=== PATIENT | female | born 1985 | race Caucasian/White ===

== ENCOUNTER 2021-09-03 14:38 | Emergency (ER) | payer OTHER, SELFPAY ==
--- NOTE | ~2021-09-03 | XR_ITS ---
EXAMINATION: XR CHEST CLINICAL INFORMATION: Shortness of breath. COMPARISON: Chest radiograph dated 03/01/2019. TECHNIQUE: 2 views of the chest were obtained. FINDINGS: The lungs are clear. The cardiomediastinal silhouette is normal in size. There is no pleural effusion or pneumothorax. No acute osseous abnormality. XR/XR chest 2V IMPRESSION: No acute cardiopulmonary findings.
[2021-09-03 15:01] VITALS: BP 122/64; PULSE 90; RESP 16; TEMP 35.8; O2SAT 93; BMI 30.1
--- NOTE | 2021-09-03 15:11 | PC.NURSE ---
PLACED ON 2L NC
--- NOTE | 2021-09-03 17:34 | ED_ITS ---
HPI - SOB/Dyspnea General Chief Complaint: Dyspnea Stated Complaint: Diff Breathing X 4 Days Time Seen by Provider: 09/03/21 16:50 Source: patient Mode of arrival: ambulatory Limitations: no limitations History of Present Illness HPI Narrative: Patient has had Shortness of breath for the past 4 days. Patient has clear mucous. Patient had COVID the first week of August. Denies calf pain or swelling. Patient vapes. MD elicited complaint: shortness of breath and cough Onset (ago): week(s) Timing: constant Severity: mild Associated symptoms: chest pain, cough and sputum production Related Data Previous Rx's Medication Instructions Recorded albuterol sulfate 90 mcg/actuation 2 puff INHALATION Q4-6H PRN #8.5 g 09/03/21 aerosol inhaler prednisone 20 mg tablet 60 mg PO DAILY #12 tab 09/03/21 Allergies Allergy/AdvReac Type Severity Reaction Status Date / Time doxycycline Allergy Unknown Verified 03/01/19 00:00 levofloxacin [Levaquin] Allergy Unknown Verified 03/01/19 00:00 tramadol Allergy Unknown Verified 03/01/19 00:00 Review of Systems Constitutional: Constitutional: Reports no additional constitutional complaints Eyes: Eyes: Reports no additional eye complaints ENT: Denies dizziness Cardiovascular: Cardiovascular: Reports no additional cardiovascular complaints Respiratory: Respiratory: Reports as per HPI Gastrointestinal: Gastrointestinal: Reports no additional gastrointestinal complaints Genitourinary: Genitourinary: Reports no additional female genitourinary complaints Musculoskeletal: Musculoskeletal: Reports no additional musculoskeletal complaints Integumentary/Breasts: Skin/Breast: Denies rash Neurologic: Reports system reviewed and no additional complaints, except as documented, Denies dizziness and Denies Sensory deficit (Neuro) Psychiatric: Psychiatric: Denies anxiety [facility] Social History Social History Advance Directives: No Advance Directives Information Provided: No Physical Exam Vital Signs: Vital Signs: Last Vital Signs Temp 98.3 F 09/03/21 17:45 Pulse 80 09/03/21 17:53 Resp 20 09/03/21 17:53 BP 101/65 09/03/21 17:45 Pulse Ox 93 09/03/21 17:45 BMI result Body Mass Index 30.1 Const: General: healthy appearing Nutritional Appearance: average body habitus Orientation/consciousness: oriented to person and patient oriented x3 Limitations: no limitations HEENT: Head: Yes normal to inspection Ears: external ears normal General nose exam: Normal external nose present Mouth: Normal oral and palatal mucosa present and oropharynx normal Throat: Yes posterior oropharynx normal Eyes: General: appearance normal, both eyes and all related structures Neck: Other: supple Neck: Yes normal visual inspection Chest: Chest palpation & inspection: normal inspection of the chest Resp: Other: patient with severe diffuse wheezing Cardio: Jugular venous distension: no JVD Rate: regular rate Rhythm: regular rhythm Heart sounds: S1 normal heart sound present and S2 normal heart sound present GI: Inspection: Yes normal to inspection Palpation (GI): Soft to palpation, nontender and No hepatosplenomegaly present Auscultation: normal bowel sounds : General: Yes no CVA tenderness Back/Spine/Pelvis: Back: no CVA tenderness Skin: General skin exam: no rashes or lesions noted Neuro: General: oriented to person and patient oriented x3 Cranial nerves: Yes CN's II-XII intact bilaterally Motor exam (neuro): 5/5 motor strength present throughout Sensory Exam: No Sensory deficit (Neuro) Extrem: General: Yes normal to inspection Psych: Appearance: grossly normal Course Reevaluation(s) Reevaluation #1: Wheezing much better will dc on prednisone and albuterol Time: 18:44 MDM - SOB/Dyspnea Imaging Data Chest x-ray: Radiologist's impression: Normal chest xray Discharge Plan Discharge Clinical Impression: Acute bronchospasm Patient Disposition: Home, Self-Care Instructions: Bronchospasm (ED) Prescriptions: New prednisone 20 mg tablet 60 mg PO DAILY Qty: 12 0RF albuterol sulfate 90 mcg/actuation HFA aerosol inhaler 2 puff inhalation Q4-6H PRN (Reason: shortness of breath or wheezing) Qty: 8.5 0RF Referrals: Physician,Unknown J [Primary Care Provider] - 1 week Stand Alone Forms: Work/School Release
[2021-09-03 17:45] VITALS: BP 101/65; PULSE 80; RESP 16; TEMP 36.8; O2SAT 93
[2021-09-03] MEDS: Albuterol/Iprat 2.5/0.5MG 3 ML AMPUL.NEB INHALE (17:52)
[2021-09-03 17:53] VITALS: PULSE 80; RESP 20; O2SAT 93
[2021-09-03] MEDS: predniSONE 20 MG TABLET 60 MG PO (17:55)
== END 2021-09-03 19:26 | disposition home or self-care (01) ==
PROVIDERS: Emergency Provider Emergency Medicine
DX: J98.01 Acute bronchospasm (principal); R06.02 Shortness of breath; R05.9 Cough, unspecified; R07.89 Other chest pain; Z79.899 Other long term (current) drug therapy
CPT/HCPCS: 71046; 94640; 99282; 99284

== ENCOUNTER 2022-04-08 10:59 | Inpatient (IN) | payer OTHER, SELFPAY ==
[2022-04-08] VITALS (11 sets, daily range): BP systolic 118–148; BP diastolic 64–91; PULSE 63–104; RESP 15–22; TEMP 36.3–37.1; O2SAT 91–97; BMI 29.2
--- NOTE | ~2022-04-08 | XR_ITS ---
EXAMINATION: XR chest 1V CLINICAL INFORMATION: Reason for Exam SOB COMPARISON: None TECHNIQUE: XR chest 1V Tubes and lines: None Lungs and pleura: Both lungs are clear. Heart and mediastinum: The mediastinum is within normal limits.. Bones/soft tissue: Skeletal structures included are normal for patient's age. XR/XR chest 1V IMPRESSION: Normal chest x-ray.
--- NOTE | 2022-04-08 11:14 | PC.NURSE ---
patient a/0x4 . pearrla . patient heart rate regular ta 63 beats per minute . breathing labored . lungs tight , wheezes noted in upper airway . crackles in lower lobes . R.T contacted at bedside . Dr. Chopra at bedside . skin moist , pink and warm . 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 patient currently on 5 liters via nasal canulla to maintain an oxygen level of 94 % . patient report history of both heroin use and vaping today .abdomen soft , postive bowel sounds in all four quadrants . labs obtained and sent . Neb treatment done by RLizzieT. patient aware of plan of care .
[2022-04-08] MEDS: Albuterol Sulfate 7.5 MG, Albuterol Sulfate (0.083%) 2.5 MG 10 MG INHALE ×3 (11:17→13:42)
[2022-04-08 11:22] LABS: MANUAL DIFF FLAG NO
--- NOTE | 2022-04-08 11:30 | ED.SOB ---
HPI - SOB/Dyspnea General Chief Complaint: Dyspnea Stated Complaint: SOB 81% RA, 97% ON TREATMENT PER EMS Time Seen by Provider: 04/08/22 11:02 Source: patient Mode of arrival: EMS History of Present Illness HPI Narrative: 37-year-old female who arrives via EMS for significant shortness of breath and as per EMS she was 81% on room air and is now 97% on supplemental oxygen. Patient states that she has been vaping and also endorses snorting heroin prior to arrival. She otherwise denies any chest pain, fevers, chills, GI or symptoms. EMS gave 120 mg of Solu-Medrol Related Data Previous Rx's Medication Instructions Recorded albuterol sulfate 90 mcg/actuation 2 puff inhalation Q4-6H PRN 09/03/21 aerosol inhaler shortness of breath or wheezing #8.5 grams prednisone 20 mg tablet 60 mg PO DAILY #12 tabs 09/03/21 Allergies Allergy/AdvReac Type Severity Reaction Status Date / Time doxycycline Allergy Unknown Verified 03/01/19 00:00 levofloxacin [Levaquin] Allergy Unknown Verified 03/01/19 00:00 tramadol Allergy Unknown Verified 03/01/19 00:00 Review of Systems Review of Systems: Pertinent positives and negatives as stated in HPI. PMFSH Past Medical History Source: nursing notes reviewed Social History Social History Alcohol intake: never Smoked in Last 30 Days: No Substance Use Type: Heroin and Marijuana Advance Directives: No Advance Directives Information Provided: No Patient : No Physical Exam Vital Signs: Vital Signs: Last Vital Signs Temp 98.5 F 04/08/22 16:03 Pulse 83 04/08/22 16:03 Resp 21 H 04/08/22 16:03 BP 139/70 04/08/22 16:03 Pulse Ox 91 L 04/08/22 16:03 O2 Del Method 04/08/22 16:03 O2 Flow Rate 2 04/08/22 16:03 Oxygen Flow Rate 5 04/08/22 11:07 BMI result Body Mass Index 29.2 VITAL SIGNS: Reviewed. GENERAL: Well developed, well nourished, in no acute distress. HEAD: Normocephalic/atraumatic EYES: PERRLA, EOMI EARS: Ext canals without abnormality NOSE: Nares patent bilateral OROPHARYNX: no oral lesions noted, posterior pharynx clear NECK: Supple, no adenopathy LUNGS: Decreased breath sounds bilaterally with coarse rhonchi, increased work of breathing and tachypnea. SpO2<93> on 4 L of nasal cannula CARDIOVASCULAR: Regular rate and rhythm without noted murmurs ABDOMEN: Soft, non-tender, non-distended with bowel sounds. MUSCULOSKELETAL: No tenderness, deformities, or effusions noted on gross inspection. EXTREMITIES: No cyanosis, clubbing or edema. SKIN: Inspection of the skin reveals no rashes NEUROLOGIC: Alert and oriented x 3. Strength and sensation to light touch were grossly intact x 4. Medications Administered Discontinued Medications Generic Name Dose Route Start Last Admin Trade Name Freq PRN Reason Stop Dose Admin Albuterol Sulfate 7.5 mg/ 10 mg 04/08/22 11:02 04/08/22 11:17 Albuterol Sulfate 2.5 mg INHALE 04/08/22 11:03 10 mg ONCE ONE Administration Albuterol Sulfate 7.5 mg/ 10 mg 04/08/22 11:31 04/08/22 11:50 Albuterol Sulfate 2.5 mg INHALE 04/08/22 11:32 10 mg ONCE ONE Administration Albuterol Sulfate 7.5 mg/ 10 mg 04/08/22 13:30 04/08/22 13:42 Albuterol Sulfate 2.5 mg INHALE 04/08/22 13:31 10 mg ONCE ONE Administration Medical Decision Making Medical Decision Making MDM Narrative: 37-year-old female with combination vaping, inhalation of heroin and on review of prior visit apparently has had bronchospasm before. 1545: There is a noted leukocytosis without left shift and noted eosinophilia, chemistries are without acute findings, urinalysis without evidence of infection and urine negative, urine toxicology is positive, viral testing is negative. Patient has received 3 nebulized treatments and received steroids via EMS, and on attempts to remove supplemental oxygen patient was noted to drop to 89-90% and was placed back on 2 L. 1657: Will obtain D-dimer, also consult id the inpatient hospitalist for admission. Suspect pneumonitis and may be explainable by vaping and/or inhalation of illicit drugs. Although the chest x-ray shows ?normal chest x-ray?. 1714: D-dimer is <150 Differential Diagnosis Differential Diagnoses: The differential diagnosis associated with the presentation includes I will rule out infection, asthma, viral illness Consult Healthcare Provider Management of the patient was discussed with: Hospitalist 1657: I consulted with the inpatient hospitalist team for admission, and they do accept admission. Lab Data MDM Lab Attestation statement: I reviewed the patient's lab results. Please see discussion above Result Diagrams: 04/08/22 11:17 04/08/22 11:17 Labs: Lab Results 04/08/22 04/08/22 04/08/22 Range/Units 11:17 11:17 11:17 WBC 13.2 H (4.8-10.8) X10*3/uL RBC 4.48 (4.20-5.50) X10*6/uL Hgb 14.2 (12.0-16.0) g/dl Hct 42.8 (37.0-47.0) % MCV 95.5 (80.0-98.0) fL MCH 31.7 (27.0-33.0) pg MCHC 33.2 (31.0-35.0) g/dl RDW 12.8 (11.0-16.0) % Plt Count 308 (160-400) X10*3/uL MPV 9.0 L (9.4-12.3) fL Immature Gran % (Auto) 0.3 (0.0-0.4) % Neut % (Auto) 64.7 (45-73) % Lymph % (Auto) 16.7 L (20-40) % [place] % (Auto) 5.9 (2-11) % Eos % (Auto) 11.6 H (0-4) % Baso % (Auto) 0.8 (0-2) % Lymph # (Auto) 2.2 (1.2-4.9) X10*3/uL [place] # (Auto) 0.8 (0.1-1.2) X10*3/uL Eos # (Auto) 1.5 H (0.0-0.4) X10*3/uL Baso # (Auto) 0.1 (0.0-0.2) X10*3/uL Abs Immat Gran (auto) 0.04 H (0.00-0.03) X10*3/uL Absolute Neuts (auto) 8.5 H (2.0-8.3) x10*3/uL Absolute Nucleated RBC 0.000 (0.0-0.012) X10*3/uL Nucleated RBC % (auto) 0.0 (0.0-0.2) /100WBC D-Dimer High Sensitivty NG/ML Sodium 141 (135-145) mmol/L Potassium 4.3 (3.3-5.1) mmol/L Chloride 108 (96-108) mmol/L Carbon Dioxide 25 (22-29) mmol/L Anion Gap 12 (12-20) BUN 11 (9-16) mg/dL Creatinine 0.80 (0.5-1.4) mg/dL Estim Creat Clear Calc 96.7 Estimated GFR > 60 Random Glucose 119 H (60-115) mg/dL Calcium 9.2 (8.4-10.2) mg/dL Total Bilirubin 0.6 (0.0-1.0) mg/dL AST 22 (5-31) U/L ALT 20 (0-31) U/L Alkaline Phosphatase 63 (39-117) U/L Total Protein 6.8 (6.5-8.0) g/dL Albumin 4.2 (3.5-5.0) g/dL Urine Color Urine Appearance Urine pH (5.0-9.0) Ur Specific Stanton (1.005-1.025) Urine Protein (Neg-Trace) mg/dL Urine Glucose (UA) (Negative) mg/dL Urine Ketones (Negative) mg/dL Urine Blood (Negative) Urine Nitrite (Negative) Ur Leukocyte Esterase (Negative) Urine Test (NEGATIVE) Urine Opiates Screen (Not Detect) Urine Fentanyl Screen (Not Detect) Ur Barbiturates Screen (Not Detect) Ur Phencyclidine Scrn (Not Detect) Ur Amphetamines Screen (Not Detect) U Benzodiazepines Scrn (Not Detect) Urine Cocaine Screen (Not Detect) U Marijuana (THC) Screen (Not Detect) COVID-19 (YASMEEN) (Negative) COVID-19 Clin Com Influenza Type A (MARITO) Negative (Negative) Influenza Type B (MARITO) Negative (Negative) Influenza A & B Note See Note 04/08/22 04/08/22 04/08/22 Range/Units 11:17 14:48 14:48 WBC (4.8-10.8) X10*3/uL RBC (4.20-5.50) X10*6/uL Hgb (12.0-16.0) g/dl Hct (37.0-47.0) % MCV (80.0-98.0) fL MCH (27.0-33.0) pg MCHC (31.0-35.0) g/dl RDW (11.0-16.0) % Plt Count (160-400) X10*3/uL MPV (9.4-12.3) fL Immature Gran % (Auto) (0.0-0.4) % Neut % (Auto) (45-73) % Lymph % (Auto) (20-40) % [place] % (Auto) (2-11) % Eos % (Auto) (0-4) % Baso % (Auto) (0-2) % Lymph # (Auto) (1.2-4.9) X10*3/uL [place] # (Auto) (0.1-1.2) X10*3/uL Eos # (Auto) (0.0-0.4) X10*3/uL Baso # (Auto) (0.0-0.2) X10*3/uL Abs Immat Gran (auto) (0.00-0.03) X10*3/uL Absolute Neuts (auto) (2.0-8.3) x10*3/uL Absolute Nucleated RBC (0.0-0.012) X10*3/uL Nucleated RBC % (auto) (0.0-0.2) /100WBC D-Dimer High Sensitivty NG/ML Sodium (135-145) mmol/L Potassium (3.3-5.1) mmol/L Chloride (96-108) mmol/L Carbon Dioxide (22-29) mmol/L Anion Gap (12-20) BUN (9-16) mg/dL Creatinine (0.5-1.4) mg/dL Estim Creat Clear Calc Estimated GFR Random Glucose (60-115) mg/dL Calcium (8.4-10.2) mg/dL Total Bilirubin (0.0-1.0) mg/dL AST (5-31) U/L ALT (0-31) U/L Alkaline Phosphatase (39-117) U/L Total Protein (6.5-8.0) g/dL Albumin (3.5-5.0) g/dL Urine Color Yellow Urine Appearance Clear Urine pH 5.5 (5.0-9.0) Ur Specific Stanton 1.025 (1.005-1.025) Urine Protein Negative (Neg-Trace) mg/dL Urine Glucose (UA) Negative (Negative) mg/dL Urine Ketones Trace (Negative) mg/dL Urine Blood Negative (Negative) Urine Nitrite Negative (Negative) Ur Leukocyte Esterase Negative (Negative) Urine Test NEGATIVE (NEGATIVE) Urine Opiates Screen (Not Detect) Urine Fentanyl Screen (Not Detect) Ur Barbiturates Screen (Not Detect) Ur Phencyclidine Scrn (Not Detect) Ur Amphetamines Screen (Not Detect) U Benzodiazepines Scrn (Not Detect) Urine Cocaine Screen (Not Detect) U Marijuana (THC) Screen (Not Detect) COVID-19 (YASMEEN) Negative (Negative) COVID-19 Clin Com See Note Influenza Type A (MARITO) (Negative) Influenza Type B (MARITO) (Negative) Influenza A & B Note 04/08/22 04/08/22 Range/Units 14:48 16:11 WBC (4.8-10.8) X10*3/uL RBC (4.20-5.50) X10*6/uL Hgb (12.0-16.0) g/dl Hct (37.0-47.0) % MCV (80.0-98.0) fL MCH (27.0-33.0) pg MCHC (31.0-35.0) g/dl RDW (11.0-16.0) % Plt Count (160-400) X10*3/uL MPV (9.4-12.3) fL Immature Gran % (Auto) (0.0-0.4) % Neut % (Auto) (45-73) % Lymph % (Auto) (20-40) % [place] % (Auto) (2-11) % Eos % (Auto) (0-4) % Baso % (Auto) (0-2) % Lymph # (Auto) (1.2-4.9) X10*3/uL [place] # (Auto) (0.1-1.2) X10*3/uL Eos # (Auto) (0.0-0.4) X10*3/uL Baso # (Auto) (0.0-0.2) X10*3/uL Abs Immat Gran (auto) (0.00-0.03) X10*3/uL Absolute Neuts (auto) (2.0-8.3) x10*3/uL Absolute Nucleated RBC (0.0-0.012) X10*3/uL Nucleated RBC % (auto) (0.0-0.2) /100WBC D-Dimer High Sensitivty < 150 NG/ML Sodium (135-145) mmol/L Potassium (3.3-5.1) mmol/L Chloride (96-108) mmol/L Carbon Dioxide (22-29) mmol/L Anion Gap (12-20) BUN (9-16) mg/dL Creatinine (0.5-1.4) mg/dL Estim Creat Clear Calc Estimated GFR Random Glucose (60-115) mg/dL Calcium (8.4-10.2) mg/dL Total Bilirubin (0.0-1.0) mg/dL AST (5-31) U/L ALT (0-31) U/L Alkaline Phosphatase (39-117) U/L Total Protein (6.5-8.0) g/dL Albumin (3.5-5.0) g/dL Urine Color Urine Appearance Urine pH (5.0-9.0) Ur Specific Stanton (1.005-1.025) Urine Protein (Neg-Trace) mg/dL Urine Glucose (UA) (Negative) mg/dL Urine Ketones (Negative) mg/dL Urine Blood (Negative) Urine Nitrite (Negative) Ur Leukocyte Esterase (Negative) Urine Test (NEGATIVE) Urine Opiates Screen POSITIVE H (Not Detect) Urine Fentanyl Screen POSITIVE H (Not Detect) Ur Barbiturates Screen Not Detected (Not Detect) Ur Phencyclidine Scrn Not Detected (Not Detect) Ur Amphetamines Screen Not Detected (Not Detect) U Benzodiazepines Scrn POSITIVE H (Not Detect) Urine Cocaine Screen POSITIVE H (Not Detect) U Marijuana (THC) Screen Not Detected (Not Detect) COVID-19 (YASMEEN) (Negative) COVID-19 Clin Com Influenza Type A (MARITO) (Negative) Influenza Type B (MARITO) (Negative) Influenza A & B Note Discharge Plan Discharge Clinical Impression: Pneumonitis, Hypoxia, Polysubstance use disorder Patient Disposition: Admitted As Inpatient
[2022-04-08 11:33] LABS: Basophils Absolute Auto 0.1 X10*3/uL (0.0-0.2); Basophils Percent Auto 0.8 % (0-2); Eosinophils Absolute Auto 1.5 X10*3/uL (0.0-0.4); Eosinophils Percent Auto 11.6 % (0-4); Hematocrit 42.8 % (37.0-47.0); Hemoglobin 14.2 g/dl (12.0-16.0); Imm Gran Abs Auto 0.04 X10*3/uL (0.00-0.03); Imm Gran Pct Auto 0.3 % (0.0-0.4); Lymphocytes Absolute Auto 2.2 X10*3/uL (1.2-4.9); Lymphocytes Percent Auto 16.7 % (20-40); Mean Corpuscular HGB Conc 33.2 g/dl (31.0-35.0); Mean Corpuscular Hemoglobin 31.7 pg (27.0-33.0); Mean Corpuscular Volume 95.5 fL (80.0-98.0); Monocytes Absolute Auto 0.8 X10*3/uL (0.1-1.2); Monocytes Percent Auto 5.9 % (2-11); Neutrophils Absolute Auto 8.5 x10*3/uL (2.0-8.3); Neutrophils Percent Auto 64.7 % (45-73); Platelet Count 308 X10*3/uL (160-400); Red Blood Count 4.48 X10*6/uL (4.20-5.50); Red Cell Distribution Width 12.8 % (11.0-16.0); White Blood Count 13.2 X10*3/uL (4.8-10.8)
[2022-04-08 11:46] LABS: COVID-19 Test Negative (Negative); IDNOW Serial# 16C4AD1C; IDNOW Serial# 6674DD1D; Influenza A Negative (Negative); Influenza B2 Negative (Negative)
[2022-04-08 11:48] LABS: Alanine Aminotransferase 20 U/L (0-31); Albumin Level 4.2 g/dL (3.5-5.0); Alkaline Phosphatase 63 U/L (39-117); Anion Gap 12 (12-20); Aspartate Amino Transferase 22 U/L (5-31); Bilirubin Total 0.6 mg/dL (0.0-1.0); Blood Urea Nitrogen 11 mg/dL (9-16); Calcium 9.2 mg/dL (8.4-10.2); Carbon Dioxide 25 mmol/L (22-29); Chloride 108 mmol/L (96-108); Creatinine Clr Calc Pharmacy 96.7; Estimated Glomerular Filt Rate > 60; Glucose Random 119 mg/dL (60-115); Potassium 4.3 mmol/L (3.3-5.1); Sodium 141 mmol/L (135-145); Total Protein 6.8 g/dL (6.5-8.0)
--- NOTE | 2022-04-08 12:00 | PC.NURSE ---
Patient had improvement in lungs after neb treatment , decreased tightness and wheezes noted . R.T titrated nasal canulla down to 4 liters and administered another treatment as ordered by provider . patient is aware of plan of care .
--- NOTE | 2022-04-08 13:24 | PC.NURSE ---
Xray at bedside . patient aware of plan of care .
[2022-04-08 14:59] LABS: Appearance Urine Clear; Color Urine Yellow; Glucose Urine UA Negative (Negative); Leukocyte Esterase Urine Negative (Negative); Nitrite Urine Negative (Negative); PH 5.5 (5.0-9.0); Specific Gravity - Urine 1.025 (1.005-1.025); Urine Blood Negative (Negative); Urine Ketones Trace mg/dL (Negative); Urine Protein Negative (Neg-Trace)
[2022-04-08 15:00] LABS: UPreg QC Valid YES; Urine Pregnancy NEGATIVE (NEGATIVE)
[2022-04-08 15:05] LABS: Amphetamine Screen Urine Not Detected (Not Detect); Barbiturates, Urine Not Detected (Not Detect); Benzodiazepines Screen Urine POSITIVE (Not Detect); Cannabinoid Screen Urine Not Detected (Not Detect); Cocaine Screen Urine POSITIVE (Not Detect); Fentanyl, urine POSITIVE (Not Detect); Opiate Screen Urine POSITIVE (Not Detect); Phencyclidine Screen Urine Not Detected (Not Detect)
--- NOTE | 2022-04-08 16:06 | P.HPHOSP_ITS ---
History of Present Illness Date of Service: 04/08/22 <CHRISTEL Reynolds - Last Filed: 04/08/22 17:20> Chief Complaint: SOB <CHRISTEL Reynolds - Last Filed: 04/08/22 17:20> Pt is a 37-year-old female with a PMH significant for polysubstance abuse who presents to the ED with shortness of breath and cough. Pt states the symptoms have been ongoing for about 1 week but have gradually been worsening and she has been ?unable to breathe? for the past 24 hours. Patient denies history of asthma but says she has felt similar to this when she was diagnosed with bronchitis in August of this year. Patient has a history of daily vaping and also notes she snorted heroin earlier this morning and now feels like she is going through withdrawal. Has been sweating and feels ?awful? but denies fever, chills, nausea, vomiting. No abdominal pain. EMS noted the patient was satting at 81% on room air. Patient placed on 2L nasal cannula which improved her O2 sat 97% In the ED labs were significant for leukocytosis of 13.2 though with no left shift, tox screen positive for opiates, fentanyl, benzos, cocaine. D-dimer pending. CXR was clear. Pt was treated with steroids by EMS and received 3 nebulizer treatments. Pt will be admitted to observation for treatment for pneumonitis. <CHRISTEL Reynolds - Last Filed: 04/08/22 17:20> Review of Systems Review of Systems: SOB, cough x1 week, worse past 24 hours No palpitations No abdominal pain <CHRISTEL Reynolds - Last Filed: 04/08/22 17:20> [facility] Social History: Social History Alcohol intake: never Smoked in Last 30 Days: No Substance Use Type: Heroin and Marijuana Advance Directives: No Advance Directives Information Provided: No Patient : No <CHRISTEL Reynolds - Last Filed: 04/08/22 17:20> Meds Allergies/Adverse reactions: Allergies Allergy/AdvReac Type Severity Reaction Status Date / Time doxycycline Allergy Unknown Verified 03/01/19 00:00 levofloxacin [Levaquin] Allergy Unknown Verified 03/01/19 00:00 tramadol Allergy Unknown Verified 03/01/19 00:00 <CHRISTEL Reynolds - Last Filed: 04/08/22 17:20> Physical Exam Vital Signs and Narrative: Vital Signs: Last Vital Signs Temp 98.1 F 04/08/22 11:07 Pulse 66 04/08/22 13:43 Resp 16 04/08/22 13:43 BP 118/64 04/08/22 12:29 Pulse Ox 92 04/08/22 12:29 O2 Del Method 04/08/22 12:29 O2 Flow Rate 4 04/08/22 12:29 Oxygen Flow Rate 5 04/08/22 11:07 BMI result Body Mass Index 29.2 <CHRISTEL Reynolds - Last Filed: 04/08/22 17:20> Constitutional: Agitated, restless, diaphoretic. Mental Status: Oriented to person, place and time. Eyes: Pupils are equal, round, and reactive to light. Ear, Nose, and Throat: Oropharynx clear, mucous membranes moist. Ears and nose without deformities. Trachea midline. Respiratory: Diffuse rhonchi bilaterally. Cardiovascular: S1, S2. Tachycardic. No murmurs, rubs, or gallops. Gastrointestinal: Abdomen soft, non-tender, non-distended. Normal bowel sounds. Neurologic: Cranial nerves II-XI are grossly intact. No focal neurological deficits. Moves all extremities spontaneously. Skin: No rashes or lesions noted. Musculoskeletal: No cyanosis or clubbing. Extremities: No edema. Psychiatric: Normal mood and affect. <CHRISTEL Reynolds - Last Filed: 04/08/22 17:20> Results Labs CBC and Chem 7: : 04/08/22 11:17 04/08/22 11:17 <CHRISTEL Reynolds - Last Filed: 04/08/22 17:20> Labs: Laboratory Results - last 24 hr 04/08/22 04/08/22 04/08/22 11:17 11:17 11:17 MCV 95.5 MCH 31.7 MCHC 33.2 RDW 12.8 Plt Count 308 MPV 9.0 L Immature Gran % (Auto) 0.3 Neut % (Auto) 64.7 Lymph % (Auto) 16.[address] [facility] % (Auto) 5.9 Eos % (Auto) 11.6 H Baso % (Auto) 0.8 Lymph # (Auto) 2.2 [facility] [place] # (Auto) 0.8 Eos # (Auto) 1.5 H Baso # (Auto) 0.1 Abs Immat Gran (auto) 0.04 H Absolute Neuts (auto) 8.5 H Absolute Nucleated RBC 0.000 Nucleated RBC % (auto) 0.0 Anion Gap 12 Estim Creat Clear Calc 96.7 Estimated GFR > 60 Random Glucose 119 H Calcium 9.2 Total Bilirubin 0.6 AST 22 ALT 20 Alkaline Phosphatase 63 Total Protein 6.8 Albumin 4.2 Urine Color Urine Appearance Urine pH Ur Specific [place] Urine Protein Urine Glucose (UA) Urine Ketones Urine Blood Urine Nitrite Ur Leukocyte Esterase Urine Test Urine Opiates Screen Urine Fentanyl Screen Ur Barbiturates Screen Ur Phencyclidine Scrn Ur Amphetamines Screen U Benzodiazepines Scrn Urine Cocaine Screen U Marijuana (THC) Screen COVID-19 (YASMEEN) COVID-19 Clin Com Influenza Type A (MARITO) Negative Influenza Type B (MARITO) Negative Influenza A & B Note See Note 04/08/22 04/08/22 04/08/22 11:17 14:48 14:48 MCV MCH MCHC RDW Plt Count MPV Immature Gran % (Auto) Neut % (Auto) Lymph % (Auto) [facility] % (Auto) Eos % (Auto) Baso % (Auto) Lymph # (Auto) [facility] # (Auto) Eos # (Auto) Baso # (Auto) Abs Immat Gran (auto) Absolute Neuts (auto) Absolute Nucleated RBC Nucleated RBC % (auto) Anion Gap Estim Creat Clear Calc Estimated GFR Random Glucose Calcium Total Bilirubin AST ALT Alkaline Phosphatase Total Protein Albumin Urine Color Yellow Urine Appearance Clear Urine pH 5.5 Ur Specific [place] 1.025 Urine Protein Negative Urine Glucose (UA) Negative Urine Ketones Trace Urine Blood Negative Urine Nitrite Negative Ur Leukocyte Esterase Negative Urine Test NEGATIVE Urine Opiates Screen Urine Fentanyl Screen Ur Barbiturates Screen Ur Phencyclidine Scrn Ur Amphetamines Screen U Benzodiazepines Scrn Urine Cocaine Screen U Marijuana (THC) Screen COVID-19 (YASMEEN) Negative COVID-19 Clin Com See Note Influenza Type A (MARITO) Influenza Type B (MARITO) Influenza A & B Note 04/08/22 14:48 MCV MCH MCHC RDW Plt Count MPV Immature Gran % (Auto) Neut % (Auto) Lymph % (Auto) [facility] [place] % (Auto) Eos % (Auto) Baso % (Auto) Lymph # (Auto) [facility] # (Auto) Eos # (Auto) Baso # (Auto) Abs Immat Gran (auto) Absolute Neuts (auto) Absolute Nucleated RBC Nucleated RBC % (auto) Anion Gap Estim Creat Clear Calc Estimated GFR Random Glucose Calcium Total Bilirubin AST ALT Alkaline Phosphatase Total Protein Albumin Urine Color Urine Appearance Urine pH Ur Specific [place] Urine Protein Urine Glucose (UA) Urine Ketones Urine Blood Urine Nitrite Ur Leukocyte Esterase Urine Test Urine Opiates Screen POSITIVE H Urine Fentanyl Screen POSITIVE H Ur Barbiturates Screen Not Detected Ur Phencyclidine Scrn Not Detected Ur Amphetamines Screen Not Detected U Benzodiazepines Scrn POSITIVE H Urine Cocaine Screen POSITIVE H U Marijuana (THC) Screen Not Detected COVID-19 (YASMEEN) COVID-19 Clin Com Influenza Type A (MARITO) Influenza Type B (MARITO) Influenza A & B Note <CHRISTEL Reynolds - Last Filed: 04/08/22 17:20> Imaging Radiologist's Impressions: Impressions Chest X-Ray 04/08/22 13:18 IMPRESSION: Normal chest x-ray. <CHRISTEL Reynolds - Last Filed: 04/08/22 17:20> Assessment and Plan (1) Polysubstance use disorder: Status: Acute <CHRISTEL Reynolds - Last Filed: 04/08/22 17:20> (2) Hypoxia: Status: Acute <CHRISTEL Reynolds - Last Filed: 04/08/22 17:20> (3) Pneumonitis: Status: Acute <CHRISTEL Reynolds - Last Filed: 04/08/22 17:20> Pt is a 37-year-old female with a PMH significant for polysubstance abuse who presents to the ED with shortness of breath and cough. Pt states the symptoms have been ongoing for about 1 week but have gradually been worsening and she has been ?unable to breathe? for the past 24 hours. Patient has a history of polysubstance abuse and last snorted heroin earlier today. SOB secondary to pneumonitis Chest x-ray clear, likely not bacterial infection DuoNeb 3ml q4h while awake Solu-Medrol 125 mg once, then 40 mg b.i.d. nasal canula titrated to O2>92, wean as tolerated Monitor respiratory status Heroin use disorder Morphine 4 mg Q4 for withdrawal symptoms as bridge to methadone Check hep B, hep C, HIV Addiction medicine consult Nicotine use disorder Nicotine gum for nicotine replacement therapy Full Code Attending:? DVT Prophylaxis: pneumatic boots Patient to be admitted for observation. If symptoms improve and her O2 >92 on RA, can likely be discharged tomorrow. <CHRISTEL Reynolds - Last Filed: 04/08/22 17:20> Pt is a 37-year-old female with a PMH significant for polysubstance abuse who presents to the ED with shortness of breath and cough. Pt states the symptoms have been ongoing for about 1 week but have gradually been worsening and she has been ?unable to breathe? for the past 24 hours. Patient has a history of polysubstance abuse and last snorted heroin earlier today. SOB secondary to pneumonitis Chest x-ray clear, likely not bacterial infection DuoNeb 3ml q4h while awake Solu-Medrol 125 mg once, then 40 mg b.i.d. nasal canula titrated to O2>92, wean as tolerated Monitor respiratory status Heroin use disorder Morphine 4 mg Q4 for withdrawal symptoms as bridge to methadone Check hep B, hep C, HIV Addiction medicine consult Nicotine use disorder Nicotine gum for nicotine replacement therapy Full Code Attending:? DVT Prophylaxis: pneumatic boots Patient to be admitted for observation. If symptoms improve and her O2 >92 on RA, can likely be discharged tomorrow. Addendum to history and physical by the advanced practice provider, CHRISTEL Tirado I interviewed and examined the patient. I discussed their presentation and management with the CELESTINO. I reviewed the history and physical and agree with the documentation, with the following additions and corrections: 37yo F with hx vaping + inhalation heroin abuse presenting with 1 wk of worsening dry cough + dyspnea. Wheezing on exam, in moderate resp distress. Hypoxic on presentation, SaO2 81 on RA. Impression of substance-induced pneumonitis for which she will be admitted, placed on steroids, standing/prn nebs. Addiction Med consult re OUD; screen for HBV/HCV/HIV <Ashley Frost MD - Last Filed: 04/08/22 17:39> Time Spent With Patient Time: Total time managing care of this patient today ____ minutes. <CHRISTEL Reynolds - Last Filed: 04/08/22 17:20> Quality Stroke Does the patient have a stroke diagnosis?: No <CHRISTEL Reynolds - Last Filed: 04/08/22 17:20> VTE Prior VTE?: No <CHRISTEL Reynolds - Last Filed: 04/08/22 17:20> VTE Risk Level:: Medical - moderate - high <CHRISTEL Reynolds - Last Filed: 04/08/22 17: 20> VTE Device Contraindication: N/A - Device Ordered <CHRISTEL Reynolds - Last Filed: 04/08/22 17:20> VTE Drug Contraindication: Treatment Not Indicated <CHRISTEL Reynolds - Last Filed: 04/08/22 17:20>
--- NOTE | 2022-04-08 16:13 | PC.NURSE ---
Dr Lizzie Chopra at bedside attempted trial of patient off O2 , patient oxygen level decreased to 88% on room air , Oxygen reapplied and patient informed plan of care for admission to hospital . patient aware of plan of care .
--- NOTE | 2022-04-08 16:18 | PC.NURSE ---
Hospitalist at bedside for admission assessment . patient aware of plan of care .
[2022-04-08 16:58] LABS: D Dimer High Sensitivity < 150 NG/ML
[2022-04-08] MEDS: methylPREDNISolone Sod Succ 125 MG/2 ML VIAL IVPUSH (17:21)
[2022-04-08] MEDS: Morphine Sulfate 4 MG/ML CARTRIDGE IVPUSH ×2 (17:50→22:05)
--- NOTE | 2022-04-08 17:58 | PC.NURSE ---
Patient reports 8 out 10 back pain , contacted provider . Dr Carrasco . PRN IVP morphine order obtained . and administered . Patient also requesting methadone for detox from heroin . Provide put consult with addiction medicine . patient aware of plan of care .
--- NOTE | 2022-04-08 18:17 | PC.NURSE ---
Report Given to Peggy Díaz . patient aware of plan of care .
--- NOTE | 2022-04-08 18:20 | PHA.MEDREC ---
Pharmacy Consult ? Medication Reconciliation Pharmacy has completed the medication reconciliation. Patient takes no known medications
[2022-04-08] MEDS: Nicotine Polacrilex 2 MG GUM 4 MG BUCCAL (18:47)
[2022-04-08] MEDS: Albuterol/Iprat 2.5/0.5MG 3 ML AMPUL.NEB INHALE (19:08)
[2022-04-08] MEDS: 0.9 % Sodium Chloride Flush 3 ML SYRINGE IVFLUSH (20:26)
[2022-04-08] MEDS: Albuterol Sulfate (0.083%) 2.5 MG/3 ML VIAL.NEB INHALE (22:24)
[2022-04-09] VITALS (10 sets, daily range): BP systolic 121–146; BP diastolic 70–77; PULSE 76–102; RESP 16–20; TEMP 36.3–37.1; O2SAT 90–96
[2022-04-09] MEDS: Albuterol/Iprat 2.5/0.5MG 3 ML AMPUL.NEB INHALE ×3 (05:56→19:38)
[2022-04-09] MEDS: Morphine Sulfate 4 MG/ML CARTRIDGE IVPUSH ×3 (06:40→23:38)
[2022-04-09] MEDS: 0.9 % Sodium Chloride Flush 3 ML SYRINGE IVFLUSH ×3 (08:54→23:11)
[2022-04-09] MEDS: methylPREDNISolone Sod Succ 40 MG/ML VIAL IVPUSH ×2 (08:54→20:09)
[2022-04-09] MEDS: Albuterol Sulfate (0.083%) 2.5 MG/3 ML VIAL.NEB INHALE ×2 (09:19→15:33)
[2022-04-09] MEDS: methADONE HCl 20 MG/2 ML ORAL.CONC 30 MG PO (09:20)
--- NOTE | 2022-04-09 09:33 | MHC.CM.PN ---
DIEHL 04/09/22 DELIVERED AND COPY PLACED IN CHART, EMR REVIEWED, PT ADMITTED W/SOB, CM MET W/PT WHO WAS DROWSY HOWEVER PLEASANT AND ABLE TO ANSWER ALL CM QUESTIONS, PT REPORTS SHE LIVES W/HER GRANDPARENTS, IS INDEP W/ALL CARE, DENIES USE OF DME AND HAS NO IN HOME/OUT PT SERVICES. PT REPORTS SHE IS INTERESTED IN DETOX/INPT SA TX PROGRAM AND STARTING ON METHADONE MAINTENANCE. CONSULT TO ADDICTION PLACED ORDERED. PT VERIFIES SHE DOES NOT HAVE A PCP AND HAS BEEN PROVIDED W/HANDOUT OF [facility] PROVIDERS, [facility]ER[facility] X3, PT DENIES HAVING A HCP AND WILL LET CM KNOW IF SHE WOULD LIKE TO COMPLETE ONE DURING THIS HOSPITAL STAY. PT ALSO VERIFIES SHE USES HER INSURANCE AND NO [facility] INSURANCE. ANTIC D/C TO DETOX/SA TX PROGRAM ONCE MEDICALLY CLEARED, IF PT DECIDES TO G HOME SHE WILL ARRANGE TRANSPORT
--- NOTE | 2022-04-09 11:27 | P.PNIM_ITS ---
Subjective Subjective Date of Service: 04/09/22 Interval History: dyspnea/wheezing improved interested in MAT Review of Systems Review of Systems: Yes all other systems are reviewed and are negative Physical Exam Vital Signs: Vital Signs: Last Vital Signs Temp 98.0 F 04/09/22 11:04 Pulse 99 04/09/22 11:04 Resp 17 04/09/22 11:04 BP 131/75 04/09/22 11:04 Pulse Ox 95 04/09/22 11:04 O2 Del Method 04/09/22 11:04 O2 Flow Rate 4.0 04/09/22 11:04 Oxygen Flow Rate 5 04/08/22 11:07 BMI result Body Mass Index 29.2 Gen: in no acute distress HEENT: sclera anicteric, moist mucus membranes Neck: supple Lungs: expiratory wheezing Heart: regular rate and rhythm, no murmurs Abd: soft, non-tender, non-distended Ext: no edema Skin: warm/well-perfused Neuro: alert and oriented x3, no focal findings Psych: appropriate affect Objective Data Active Medications Acetaminophen (Acetaminophen 325 Mg Tablet) 650 mg PO Q6H PRN PRN Reason: Pain, Mild (Pain Scale 1-3) Albuterol Sulfate (Albuterol Sulfate (0.083%) 2.5 Mg/3 Ml Vial.Neb) 2.5 mg INHALE Q2H PRN PRN Reason: Shortness of Breath/Wheezing Last Admin: 04/09/22 09:19 Dose: 2.5 mg Documented By: NIYAH Albuterol/Ipratropium (Albuterol/Iprat 2.5/0.5mg 3 Ml Ampul.Neb) 3 ml INHALE RQ4H WHILE AWAKE [facility] Last Admin: 04/09/22 05:56 Dose: 3 ml Documented By: TIFFANIE Methylprednisolone Sodium Succinate (Methylprednisolone Sod Succ 40 Mg/Ml Vial) 40 mg IVPUSH Q12H [facility] Last Admin: 04/09/22 08:54 Dose: 40 mg Documented By: NIYAH Morphine Sulfate (Morphine Sulfate 4 Mg/Ml Cartridge) 4 mg IVPUSH Q4H PRN; Protocol PRN Reason: Pain, Severe (Pain Scale 7-10) Last Admin: 04/09/22 06:40 Dose: 4 mg Documented By: AYANA Nicotine Polacrilex (Nicotine Polacrilex 2 Mg Gum) 4 mg BUCCAL Q1H PRN PRN Reason: Nicotine Cravings Last Admin: 04/08/22 18:47 Dose: 4 mg Documented By: ROBERTO Sodium Chloride (0.9 % Sodium Chloride Flush 3 Ml Syringe) [address] [facility] Last Admin: 04/09/22 08:54 Dose: 3 ml Documented By: NIYAH Labs CBC & Chem 7: 04/08/22 11:17 04/08/22 11:17 Labs: Laboratory Results - last 24 hr 04/08/22 04/08/22 04/08/22 11:17 11:17 11:17 MCV 95.5 MCH 31.7 MCHC 33.2 RDW 12.8 Plt Count 308 MPV 9.0 L Immature Gran % (Auto) 0.3 Neut % (Auto) 64.7 Lymph % (Auto) 16.7 L [place] % (Auto) 5.9 Eos % (Auto) 11.6 H Baso % (Auto) 0.8 Lymph # (Auto) 2.2 [place] # (Auto) 0.8 Eos # (Auto) 1.5 H Baso # (Auto) 0.1 Abs Immat Gran (auto) 0.04 H Absolute Neuts (auto) 8.5 H Absolute Nucleated RBC 0.000 Nucleated RBC % (auto) 0.0 D-Dimer High Sensitivty Anion Gap 12 Estim Creat Clear Calc 96.7 Estimated GFR > 60 Random Glucose 119 H Calcium 9.2 Total Bilirubin 0.6 AST 22 ALT 20 Alkaline Phosphatase 63 Total Protein 6.8 Albumin 4.2 Urine Color Urine Appearance Urine pH Ur Specific [place] Urine Protein Urine Glucose (UA) Urine Ketones Urine Blood Urine Nitrite Ur Leukocyte Esterase Urine Test Urine Opiates Screen Urine Fentanyl Screen Ur Barbiturates Screen Ur Phencyclidine Scrn Ur Amphetamines Screen U Benzodiazepines Scrn Urine Cocaine Screen U Marijuana (THC) Screen COVID-19 (YASMEEN) COVID-19 Clin Com Influenza Type A (MARITO) Negative Influenza Type B (MARITO) Negative Influenza A & B Note See Note 04/08/22 04/08/22 04/08/22 11:17 14:48 14:48 MCV MCH MCHC RDW Plt Count MPV Immature Gran % (Auto) Neut % (Auto) Lymph % (Auto) [place] % (Auto) Eos % (Auto) Baso % (Auto) Lymph # (Auto) [place] # (Auto) Eos # (Auto) Baso # (Auto) Abs Immat Gran (auto) Absolute Neuts (auto) Absolute Nucleated RBC Nucleated RBC % (auto) D-Dimer High Sensitivty Anion Gap Estim Creat Clear Calc Estimated GFR Random Glucose Calcium Total Bilirubin AST ALT Alkaline Phosphatase Total Protein Albumin Urine Color Yellow Urine Appearance Clear Urine pH 5.5 Ur Specific [place] 1.025 Urine Protein Negative Urine Glucose (UA) Negative Urine Ketones Trace Urine Blood Negative Urine Nitrite Negative Ur Leukocyte Esterase Negative Urine Test NEGATIVE Urine Opiates Screen Urine Fentanyl Screen Ur Barbiturates Screen Ur Phencyclidine Scrn Ur Amphetamines Screen U Benzodiazepines Scrn Urine Cocaine Screen U Marijuana (THC) Screen COVID-19 (YASMEEN) Negative COVID-19 Clin Com See Note Influenza Type A (MARITO) Influenza Type B (MARITO) Influenza A & B Note 04/08/22 04/08/22 14:48 16:11 MCV MCH MCHC RDW Plt Count MPV Immature Gran % (Auto) Neut % (Auto) Lymph % (Auto) [place] % (Auto) Eos % (Auto) Baso % (Auto) Lymph # (Auto) [place] # (Auto) Eos # (Auto) Baso # (Auto) Abs Immat Gran (auto) Absolute Neuts (auto) Absolute Nucleated RBC Nucleated RBC % (auto) D-Dimer High Sensitivty < 150 Anion Gap Estim Creat Clear Calc Estimated GFR Random Glucose Calcium Total Bilirubin AST ALT Alkaline Phosphatase Total Protein Albumin Urine Color Urine Appearance Urine pH Ur Specific [place] Urine Protein Urine Glucose (UA) Urine Ketones Urine Blood Urine Nitrite Ur Leukocyte Esterase Urine Test Urine Opiates Screen POSITIVE H Urine Fentanyl Screen POSITIVE H Ur Barbiturates Screen Not Detected Ur Phencyclidine Scrn Not Detected Ur Amphetamines Screen Not Detected U Benzodiazepines Scrn POSITIVE H Urine Cocaine Screen POSITIVE H U Marijuana (THC) Screen Not Detected COVID-19 (YASMEEN) COVID-19 Clin Com Influenza Type A (MARITO) Influenza Type B (MARITO) Influenza A & B Note Assessment and Plan (1) Pneumonitis: Status: Acute Plan d#2 37yo F with OUD + tobacco abuse presenting with 1 wk of worsening dry cough + dyspnea, found to have severe wheezing + hypoxia # substance-induced pneumonitis - IV steroids d#2, standing/prn nebs # OUD - Addiction Medicine consultation, screen HBV/HCV/HIV # tobacco abuse - NRT # VTE ppx: SCDs # dispo: anticipate home when off O2 Time Spent With Patient Time: Total time managing care of this patient today __36__ minutes. Quality Stroke Does the patient have a stroke diagnosis?: No VTE Prior VTE?: No VTE Risk Level:: Medical - moderate - high VTE Device Contraindication: N/A - Device Ordered VTE Drug Contraindication: Treatment Not Indicated
--- NOTE | 2022-04-09 16:43 | HO.ADDICTCON ---
History of Present Illness Date of Service: 04/09/2022 Chief Complaint: SOB Reason for Consult: opioid use HPI Narrative: Patient is a 37 year old female currently medically admitted with pneumonitis. Reporting opioid use and withdrawal so consult requested. Patient seen in room 344. Awake, alert, visibly anxious and diaphoretic. Patient reports she is currently using approx 1 bundle of heroin QD IN. Reporting withdrawal sx including, feeling hot and cold, body aches, nausea and anxiety. Patient somewhat guarded and slow to reposnd to some questions. States she started using opiates approx 2 years ago and had about a year in recovery with Vivitrol injection. Has never been prescribed methadone and feels strongly that she does not want suboxone d/t previous hx of precipitated withdrawal. Reports she is unstably housed at this time. Review of Systems Constitutional: Reports as per HPI Diagnostics Vital Signs (24Hr): Vital Signs - 24 hr 04/08/22 17:50 04/08/22 19:11 04/08/22 20:00 Temperature 97.3 F Pulse Rate 83 63 Respiratory Rate 22 H 22 H 15 Blood Pressure 126/68 Pulse Oximetry 97 Oxygen Delivery Method Aerosol Mask Oxygen Flow Rate 6 04/08/22 22:25 04/08/22 23:50 04/09/22 03:33 Temperature 98.8 F 97.4 F Pulse Rate 100 104 H 87 Respiratory Rate 18 18 19 Blood Pressure 142/82 H 137/77 Pulse Oximetry 96 90 L Oxygen Delivery Method Nasal Cannula Nasal Cannula Oxygen Flow Rate 4 4 04/09/22 05:56 04/09/22 07:31 04/09/22 11:04 Temperature 98.1 F 98.0 F Pulse Rate 102 H 76 99 Respiratory Rate 16 17 17 Blood Pressure 121/72 131/75 Pulse Oximetry 96 95 Oxygen Delivery Method Nasal Cannula Nasal Cannula Oxygen Flow Rate 4.0 4.0 04/09/22 12:29 04/09/22 15:03 04/09/22 15:35 Temperature 98.7 F Pulse Rate 95 82 102 H Respiratory Rate 17 18 20 Blood Pressure 124/70 Pulse Oximetry 90 L Oxygen Delivery Method Nasal Cannula Oxygen Flow Rate 4.0 BMI result Body Mass Index 29.2 Labs Results: 04/08/22 11:17 04/08/22 11:17 Labs: Laboratory Results - last 48 hr 04/08/22 04/08/22 04/08/22 11:17 11:17 11:17 WBC 13.2 H RBC 4.48 Hgb 14.2 Hct 42.8 MCV 95.5 MCH 31.7 MCHC 33.2 RDW 12.8 Plt Count 308 MPV 9.0 L Immature Gran % (Auto) 0.3 Neut % (Auto) 64.7 Lymph % (Auto) 16.7 L [place] % (Auto) 5.9 Eos % (Auto) 11.6 H Baso % (Auto) 0.8 Lymph # (Auto) 2.2 [place] # (Auto) 0.8 Eos # (Auto) 1.5 H Baso # (Auto) 0.1 Abs Immat Gran (auto) 0.04 H Absolute Neuts (auto) 8.5 H Absolute Nucleated RBC 0.000 Nucleated RBC % (auto) 0.0 D-Dimer High Sensitivty Sodium 141 Potassium 4.3 Chloride 108 Carbon Dioxide 25 Anion Gap 12 BUN 11 Creatinine 0.80 Estim Creat Clear Calc 96.7 Estimated GFR > 60 Random Glucose 119 H Calcium 9.2 Total Bilirubin 0.6 AST 22 ALT 20 Alkaline Phosphatase 63 Total Protein 6.8 Albumin 4.2 Urine Color Urine Appearance Urine pH Ur Specific [place] Urine Protein Urine Glucose (UA) Urine Ketones Urine Blood Urine Nitrite Ur Leukocyte Esterase Urine Test Urine Opiates Screen Urine Fentanyl Screen Ur Barbiturates Screen Ur Phencyclidine Scrn Ur Amphetamines Screen U Benzodiazepines Scrn Urine Cocaine Screen U Marijuana (THC) Screen COVID-19 (YASMEEN) COVID-19 Clin Com Influenza Type A (MARITO) Negative Influenza Type B (MARITO) Negative Influenza A & B Note See Note 04/08/22 04/08/22 04/08/22 11:17 14:48 14:48 WBC RBC Hgb Hct MCV MCH MCHC RDW Plt Count MPV Immature Gran % (Auto) Neut % (Auto) Lymph % (Auto) [place] % (Auto) Eos % (Auto) Baso % (Auto) Lymph # (Auto) [place] # (Auto) Eos # (Auto) Baso # (Auto) Abs Immat Gran (auto) Absolute Neuts (auto) Absolute Nucleated RBC Nucleated RBC % (auto) D-Dimer High Sensitivty Sodium Potassium Chloride Carbon Dioxide Anion Gap BUN Creatinine Estim Creat Clear Calc Estimated GFR Random Glucose Calcium Total Bilirubin AST ALT Alkaline Phosphatase Total Protein Albumin Urine Color Yellow Urine Appearance Clear Urine pH 5.5 Ur Specific [place] 1.025 Urine Protein Negative Urine Glucose (UA) Negative Urine Ketones Trace Urine Blood Negative Urine Nitrite Negative Ur Leukocyte Esterase Negative Urine Test NEGATIVE Urine Opiates Screen Urine Fentanyl Screen Ur Barbiturates Screen Ur Phencyclidine Scrn Ur Amphetamines Screen U Benzodiazepines Scrn Urine Cocaine Screen U Marijuana (THC) Screen COVID-19 (YASMEEN) Negative COVID-19 Clin Com See Note Influenza Type A (MARITO) Influenza Type B (MARITO) Influenza A & B Note 04/08/22 04/08/22 14:48 16:11 WBC RBC Hgb Hct MCV MCH MCHC RDW Plt Count MPV Immature Gran % (Auto) Neut % (Auto) Lymph % (Auto) [place] % (Auto) Eos % (Auto) Baso % (Auto) Lymph # (Auto) [place] # (Auto) Eos # (Auto) Baso # (Auto) Abs Immat Gran (auto) Absolute Neuts (auto) Absolute Nucleated RBC Nucleated RBC % (auto) D-Dimer High Sensitivty < 150 Sodium Potassium Chloride Carbon Dioxide Anion Gap BUN Creatinine Estim Creat Clear Calc Estimated GFR Random Glucose Calcium Total Bilirubin AST ALT Alkaline Phosphatase Total Protein Albumin Urine Color Urine Appearance Urine pH Ur Specific [place] Urine Protein Urine Glucose (UA) Urine Ketones Urine Blood Urine Nitrite Ur Leukocyte Esterase Urine Test Urine Opiates Screen POSITIVE H Urine Fentanyl Screen POSITIVE H Ur Barbiturates Screen Not Detected Ur Phencyclidine Scrn Not Detected Ur Amphetamines Screen Not Detected U Benzodiazepines Scrn POSITIVE H Urine Cocaine Screen POSITIVE H U Marijuana (THC) Screen Not Detected COVID-19 (YASMEEN) COVID-19 Clin Com Influenza Type A (MARITO) Influenza Type B (MARITO) Influenza A & B Note Imaging Radiology Impressions: ITS Impressions Chest X-Ray 04/08/22 13:18 IMPRESSION: Normal chest x-ray. Mental Status Exam Mental Status Exam Patient Appearance: Perspiring Patient Orientation: Person, Place, Time and Situation Level of Consciousness: Awake and Alert Patient Behavior: Appropriate and Guarded Medications Medications Current Medications Acetaminophen (Acetaminophen 325 Mg Tablet) 650 mg PO Q6H PRN PRN Reason: Pain, Mild (Pain Scale 1-3) Albuterol Sulfate (Albuterol Sulfate (0.083%) 2.5 Mg/3 Ml Vial.Neb) 2.5 mg INHALE Q2H PRN PRN Reason: Shortness of Breath/Wheezing Last Admin: 04/09/22 15:33 Dose: 2.5 mg Albuterol/Ipratropium (Albuterol/Iprat 2.5/0.5mg 3 Ml Ampul.Neb) 3 ml INHALE RQ4H WHILE AWAKE [facility] Last Admin: 04/09/22 15:35 Dose: Not Given Methylprednisolone Sodium Succinate (Methylprednisolone Sod Succ 40 Mg/Ml Vial) 40 mg IVPUSH Q12H [facility] Last Admin: 04/09/22 08:54 Dose: 40 mg Morphine Sulfate (Morphine Sulfate 4 Mg/Ml Cartridge) 4 mg IVPUSH Q4H PRN; Protocol PRN Reason: Pain, Severe (Pain Scale 7-10) Last Admin: 04/09/22 14:41 Dose: 4 mg Nicotine Polacrilex (Nicotine Polacrilex 2 Mg Gum) 4 mg BUCCAL Q1H PRN PRN Reason: Nicotine Cravings Last Admin: 04/08/22 18:47 Dose: 4 mg Sodium Chloride (0.9 % Sodium Chloride Flush 3 Ml Syringe) 3 ml IVFLUSH QSHIFT [facility] Last Admin: 04/09/22 14:43 Dose: 3 ml Allergies Allergies Allergy/AdvReac Type Severity Reaction Status Date / Time doxycycline Allergy Unknown Verified 03/01/19 00:00 levofloxacin [Levaquin] Allergy Unknown Verified 03/01/19 00:00 tramadol Allergy Unknown Verified 03/01/19 00:00 Assessment & Plan Assessment & Plan (1) Opioid use disorder: Status: Acute Code(s): F11.90 - Opioid use, unspecified, uncomplicated Assessment and Plan: patient agreeable to methadone 30mg. Intially declined increasing dose, then agreeable to 10mg PRN X1 in evening unsure if she wishes to continue with medication or seek inpatient treatment for KATIE--RSRN provided patient with different treatment options to consider will follow up in AM --methadone 30mg QD for now Total time managing care of this patient today _35___ minutes. PMFSH Social History Social History Household Members: Family Housing: Apartment Do you presently have visiting nurse or other home services: No Alcohol intake: never Patient Tobacco Use Status: Current everyday Tobacco user Second Hand Smoke Exposure: No Substance Use Type: Crack/Cocaine and Marijuana service: No Current occupational status: unemployed
[2022-04-09] MEDS: methADONE HCl 20 MG/2 ML ORAL.CONC 10 MG PO (20:08)
[2022-04-10] VITALS (10 sets, daily range): BP systolic 117–129; BP diastolic 67–80; PULSE 77–102; RESP 16–20; TEMP 36.2–36.6; O2SAT 91–94
[2022-04-10] MEDS: Albuterol Sulfate (0.083%) 2.5 MG/3 ML VIAL.NEB INHALE (01:30)
[2022-04-10] MEDS: methADONE HCl 10 MG TABLET PO (02:02)
[2022-04-10 05:04] LABS: HBS Num1 > 1000.00 mIU/mL (0-7.99); HBc Num1 0.07 S/CO (0.00-0.79); HBsAGNum1 0.22 S/CO (0.00-0.99); HIV AB/AG Nonreactive (Nonreactive); HIV Num 1 0.06 S/CO (0.00-0.99); Hepatitis B Core Antibody Nonreactive (Nonreactive); Hepatitis B Surface Antigen Negative (Negative); ~HepC Num1 0.07 S/CO (0.00-0.79); ~Hepatitis B Surface Antibody REACTIVE (Nonreactive); ~Hepatitis C Antibody Nonreactive (Nonreactive)
[2022-04-10] MEDS: Morphine Sulfate 4 MG/ML CARTRIDGE IVPUSH ×3 (05:10→21:58)
[2022-04-10] MEDS: methylPREDNISolone Sod Succ 40 MG/ML VIAL IVPUSH ×2 (08:12→21:58)
[2022-04-10] MEDS: methADONE HCl 20 MG/2 ML ORAL.CONC 30 MG PO (08:14)
[2022-04-10] MEDS: 0.9 % Sodium Chloride Flush 3 ML SYRINGE IVFLUSH ×3 (08:14→23:40)
--- NOTE | 2022-04-10 09:34 | P.PNIM_ITS ---
Subjective Subjective Date of Service: 04/10/22 Interval History: started on methadone still dyspneic, wheezing + hypoxic Review of Systems Review of Systems: Yes all other systems are reviewed and are negative Physical Exam Vital Signs: Vital Signs: Last Vital Signs Temp 97.2 F 04/10/22 07:51 Pulse 92 04/10/22 07:51 Resp 18 04/10/22 07:51 BP 122/67 04/10/22 07:51 Pulse Ox 94 04/10/22 07:51 O2 Del Method 04/10/22 07:51 O2 Flow Rate 4.0 04/10/22 07:51 Oxygen Flow Rate 5 04/08/22 11:07 BMI result Body Mass Index 29.2 Gen: in no acute distress HEENT: sclera anicteric, moist mucus membranes Neck: supple Lungs: expiratory wheezing Heart: regular rate and rhythm, no murmurs Abd: soft, non-tender, non-distended Ext: no edema Skin: warm/well-perfused Neuro: alert and oriented x3, no focal findings Psych: anxious Objective Data Active Medications Acetaminophen (Acetaminophen 325 Mg Tablet) 650 mg PO Q6H PRN PRN Reason: Pain, Mild (Pain Scale 1-3) Albuterol Sulfate (Albuterol Sulfate (0.083%) 2.5 Mg/3 Ml Vial.Neb) 2.5 mg INHALE Q2H PRN PRN Reason: Shortness of Breath/Wheezing Last Admin: 04/10/22 01:30 Dose: 2.5 mg Documented By: ABEL Albuterol Sulfate 2.5 mg/ (Ipratropium [place] 0.5 mg) 0 mg INHALE RQ4H WHILE AWAKE [facility] Last Admin: 04/10/22 08:21 Dose: Not Given Documented By: LAMAR Non-Admin Reason: See Note Methadone HCl (Methadone Hcl 20 Mg/2 Ml Oral.Conc) 30 mg PO DAILY [facility] Last Admin: 04/10/22 08:14 Dose: 30 mg Documented By: RODY Methadone HCl (Methadone Hcl 20 Mg/2 Ml Oral.Conc) 10 mg PO DAILY PRN PRN Reason: Opiate Withdrawal Last Admin: 04/09/22 20:08 Dose: 10 mg Documented By: DENISE Methylprednisolone Sodium Succinate (Methylprednisolone Sod Succ 40 Mg/Ml Vial) 40 mg IVPUSH Q12H [facility] Last Admin: 04/10/22 08:12 Dose: 40 mg Documented By: RODY Morphine Sulfate (Morphine Sulfate 4 Mg/Ml Cartridge) 4 mg IVPUSH Q4H PRN; Protocol PRN Reason: Pain, Severe (Pain Scale 7-10) Last Admin: 04/10/22 05:10 Dose: 4 mg Documented By: DENISE Nicotine Polacrilex (Nicotine Polacrilex 2 Mg Gum) 4 mg BUCCAL Q1H PRN PRN Reason: Nicotine Cravings Last Admin: 04/08/22 18:47 Dose: 4 mg Documented By: ROBERTO Sodium Chloride (0.9 % Sodium Chloride Flush 3 Ml Syringe) 3 ml IVFLUSH QSHIFT [facility] Last Admin: 04/10/22 08:14 Dose: 3 ml Documented By: RODY Labs CBC & Chem 7: 04/08/22 11:17 04/08/22 11:17 Labs: Laboratory Results - last 24 hr 04/08/22 11:17 Hep Bs Antigen Negative Hep Bs Antibody REACTIVE Hep B Core Total Ab Nonreactive Hepatitis C Ab (EIA) Nonreactive HIV 1&2 Ab/P24 Ag 4thGn Nonreactive Assessment and Plan (1) Pneumonitis: Status: Acute Plan d#3 37yo F with OUD + tobacco abuse presenting with 1 wk of worsening dry cough + dyspnea, found to have severe wheezing + hypoxia # substance-induced pneumonitis - IV steroids d#3, standing/prn nebs # acute hypoxic respiratory failure - wean O2 as tolerated; currently on 4L O2 # OUD - Addiction Medicine consulted, started metahdone - HCV + HIV negative, HBV immune # tobacco abuse - NRT # VTE ppx: SCDs # dispo: anticipate home when off O2. PT consultation today. In my clinical judgment, the patient requires continued inpatient hospitalization for the following reasons: hypoxia Time Spent With Patient Time: Total time managing care of this patient today _30___ minutes. Quality Stroke Does the patient have a stroke diagnosis?: No VTE Prior VTE?: No VTE Risk Level:: Medical - moderate - high VTE Device Contraindication: N/A - Device Ordered VTE Drug Contraindication: Treatment Not Indicated
--- NOTE | 2022-04-10 10:02 | MHC.RECOVRN ---
Met with pt in 344 to follow up regarding methadone and withdrawal symptoms. Pt sitting in bed, awake, alert, easily engages in conversation. Pt appears uncomfortable and diaphoretic. Pt reports methadone is helping during the day but is not enough at night. Pt would like to continue increasing dose and be linked to an OTP. Pt has never been on methadone before and ultimate goal is to return to Vivitrol. [facility] very helpful with ceasing substance use, including alcohol. Pt reports using substances x 4 years with 1 year of recovery. Pt denies ATS admissions, states I would just stay in a hotel room and pop a benzo every couple hours to get through withdrawal. Pt educated regarding methadone titration process, OTP requirements, and eventual transition to Vivitrol. Pt also educated regarding other options including Suboxone and Sublocade. Pt wishes to continue with methadone until symptoms have resolved and then revisit options. Pt denies questions or concerns at this time. Discussed with Katelyn Paredes APRN.
[2022-04-10] MEDS: methADONE HCl 20 MG/2 ML ORAL.CONC PO (10:22)
--- NOTE | 2022-04-10 12:57 | MHC.CM.PN ---
EMR REVIEWED, PT REMAINS ON SUPPLEMENTAL O2 AND IV STEROIDS, PER PT NO PT IS NEEDED, PT INDEPENDENTLY AMBULATES, PT NOT READY FOR D/C, CM WILL CONT TO FOLLOW AND PT WILL LIKELY GO TO DETOX/INPT TX PROGRAM, RECOVERY NURSE FOLLOWING.
--- NOTE | 2022-04-10 15:53 | MHC.RECOVRN ---
Pts referral sent to [facility] in [place]. Will need last dose letter upon discharge.
--- NOTE | 2022-04-10 16:22 | HO.ADDICTPRO ---
Subjective Subjective Date of Service: 04/10/22 Reason For Visit: SOB Interim History: Patient seen in follow up Chart reviewed--received methadone 10mg at 8pm and then again at 2am. Patient reporting withdrawal sx were awful at night. Received methadone 50mg this morning with positive effect. Appearing less anxious and not diaphoretic as she appeared yesterday. Hesitant to continue increasing dose, however agreeable to it Feeling overall achy and weak secondary to pneumonitis. Met with [facility] RN earlier and expressed desire to remain in treatment and follow up with OTP in the community. Referral in process Review of Systems Constitutional: Reports as per HPI Mental Status Exam Mental Status Exam Patient Appearance: Well Grooomed Patient Orientation: Person, Place, Time and Situation Level of Consciousness: Awake and Appropriate Mood Description: Calm Affect Description: Calm Diagnostics Vital Signs (24Hr): Vital Signs - 24 hr 04/09/22 18:48 04/09/22 19:39 04/10/22 01:31 Temperature 98.1 F Pulse Rate 77 77 77 Respiratory Rate 18 18 18 Blood Pressure 146/70 H Pulse Oximetry 95 Oxygen Delivery Method Nasal Cannula Oxygen Flow Rate 4.0 04/10/22 03:42 04/10/22 07:18 04/10/22 07:51 Temperature 97.5 F 97.2 F Pulse Rate 80 102 H 92 Respiratory Rate 20 18 18 Blood Pressure 117/74 122/67 Pulse Oximetry 91 L 94 Oxygen Delivery Method Nasal Cannula Nasal Cannula Oxygen Flow Rate 4 4.0 04/10/22 09:38 04/10/22 11:52 04/10/22 15:09 Temperature 97.9 F Pulse Rate 92 96 94 Respiratory Rate 18 16 Blood Pressure 122/67 129/72 Pulse Oximetry 94 94 Oxygen Delivery Method Nasal Cannula Oxygen Flow Rate 4 04/10/22 15:50 Temperature Pulse Rate 81 Respiratory Rate 16 Blood Pressure Pulse Oximetry Oxygen Delivery Method Oxygen Flow Rate BMI result Body Mass Index 29.2 Labs Results: 04/08/22 11:17 04/08/22 11:17 Labs: Laboratory Results - last 48 hr 04/08/22 04/08/22 11:17 16:11 D-Dimer High Sensitivty < 150 Hep Bs Antigen Negative Hep Bs Antibody REACTIVE Hep B Core Total Ab Nonreactive Hepatitis C Ab (EIA) Nonreactive HIV 1&2 Ab/P24 Ag 4thGn Nonreactive Imaging Radiology Impressions: ITS Impressions Chest X-Ray 04/08/22 13:18 IMPRESSION: Normal chest x-ray. Medications Medications Current Medications Acetaminophen (Acetaminophen 325 Mg Tablet) 650 mg PO Q6H PRN PRN Reason: Pain, Mild (Pain Scale 1-3) Albuterol Sulfate (Albuterol Sulfate (0.083%) 2.5 Mg/3 Ml Vial.Neb) 2.5 mg INHALE Q2H PRN PRN Reason: Shortness of Breath/Wheezing Last Admin: 04/10/22 01:30 Dose: 2.5 mg Albuterol Sulfate 2.5 mg/ (Ipratropium [place] 0.5 mg) 0 mg INHALE RQ4H WHILE AWAKE [facility] Last Admin: 04/10/22 15:48 Dose: 2.5 each Methadone HCl (Methadone Hcl 20 Mg/2 Ml Oral.Conc) 10 mg PO DAILY PRN PRN Reason: Opiate Withdrawal Last Admin: 04/09/22 20:08 Dose: 10 mg Methadone HCl (Methadone Hcl 20 Mg/2 Ml Oral.Conc) 55 mg PO DAILY [facility] Methylprednisolone Sodium Succinate (Methylprednisolone Sod Succ 40 Mg/Ml Vial) 40 mg IVPUSH Q12H [facility] Last Admin: 04/10/22 08:12 Dose: 40 mg Morphine Sulfate (Morphine Sulfate 4 Mg/Ml Cartridge) 4 mg IVPUSH Q4H PRN; Protocol PRN Reason: Pain, Severe (Pain Scale 7-10) Last Admin: 04/10/22 15:29 Dose: 4 mg Nicotine Polacrilex (Nicotine Polacrilex 2 Mg Gum) 4 mg BUCCAL Q1H PRN PRN Reason: Nicotine Cravings Last Admin: 04/08/22 18:47 Dose: 4 mg Sodium Chloride (0.9 % Sodium Chloride Flush 3 Ml Syringe) 3 ml IVFLUSH QSHIFT [facility] Last Admin: 04/10/22 15:31 Dose: 3 ml Allergies Allergies Allergy/AdvReac Type Severity Reaction Status Date / Time doxycycline Allergy Unknown Verified 03/01/19 00:00 levofloxacin [Levaquin] Allergy Unknown Verified 03/01/19 00:00 tramadol Allergy Unknown Verified 03/01/19 00:00 Assessment & Plan Assessment & Plan (1) Opioid use disorder: Status: Acute Code(s): F11.90 - Opioid use, unspecified, uncomplicated Assessment and Plan: methadone 55mg in AM will keep 10mg PRN dose should she need it overnight will continue to follow Total time managing care of this patient today _20___ minutes.
[2022-04-11] VITALS (8 sets, daily range): BP systolic 122–131; BP diastolic 72–75; PULSE 74–98; RESP 16–18; TEMP 36.2–36.8; O2SAT 92–96
[2022-04-11] MEDS: methADONE HCl 20 MG/2 ML ORAL.CONC 10 MG PO (00:57)
[2022-04-11] MEDS: Morphine Sulfate 4 MG/ML CARTRIDGE IVPUSH (05:05)
[2022-04-11] MEDS: 0.9 % Sodium Chloride Flush 3 ML SYRINGE IVFLUSH ×3 (09:23→21:37)
[2022-04-11] MEDS: methylPREDNISolone Sod Succ 40 MG/ML VIAL IVPUSH ×2 (09:23→21:34)
[2022-04-11] MEDS: methADONE HCl 20 MG/2 ML ORAL.CONC 55 MG PO (09:24)
--- NOTE | 2022-04-11 13:08 | P.PNIM_ITS ---
Subjective Subjective Date of Service: 04/11/22 Interval History: Feeling better complaining of productive cough with clear phlegm is a, no fevers no chills, currently on 2 L of oxygen finger oximetry 93% started using incentive spirometry, denies nausea vomiting or abdominal pain tolerating diet no other acute issues overnight. Review of Systems Review of Systems: Yes all other systems are reviewed and are negative Physical Exam Vital Signs: Vital Signs: Last Vital Signs Temp 97.2 F 04/11/22 07:45 Pulse 86 04/11/22 11:38 Resp 18 04/11/22 11:38 BP 128/73 04/11/22 07:45 Pulse Ox 93 04/11/22 07:45 O2 Del Method 04/11/22 07:45 O2 Flow Rate 2.0 04/11/22 07:45 Oxygen Flow Rate 5 04/08/22 11:07 BMI result Body Mass Index 29.2 Const: Other: Gen: Awake alert x3, in no acute distress HEENT: sclera anicteric, moist mucus membranes Neck: supple Lungs: Coarse rhonchorous expiratory breath sounds Heart: regular rate and rhythm, no murmurs Abd: soft, non-tender, non-distended Ext: no edema Skin: warm/well-perfused Neuro: alert and oriented x3, no focal findings Psych: anxious Objective Data Active Medications Acetaminophen (Acetaminophen 325 Mg Tablet) 650 mg PO Q6H PRN PRN Reason: Pain, Mild (Pain Scale 1-3) Albuterol Sulfate (Albuterol Sulfate (0.083%) 2.5 Mg/3 Ml Vial.Neb) 2.5 mg INHALE Q2H PRN PRN Reason: Shortness of Breath/Wheezing Last Admin: 04/10/22 01:30 Dose: 2.5 mg Documented By: ABEL Albuterol Sulfate 2.5 mg/ (Ipratropium [place] 0.5 mg) 0 mg INHALE RQ4H WHILE AWAKE [facility] Last Admin: 04/11/22 11:37 Dose: 1 each Documented By: FELY Methadone HCl (Methadone Hcl 20 Mg/2 Ml Oral.Conc) 10 mg PO DAILY PRN PRN Reason: Opiate Withdrawal Last Admin: 04/11/22 00:57 Dose: 10 mg Documented By: DENISE Methadone HCl (Methadone Hcl 20 Mg/2 Ml Oral.Conc) 55 mg PO DAILY [facility] Last Admin: 04/11/22 09:24 Dose: 55 mg Documented By: ELKE Methylprednisolone Sodium Succinate (Methylprednisolone Sod Succ 40 Mg/Ml Vial) 40 mg IVPUSH Q12H [facility] Last Admin: 04/11/22 09:23 Dose: 40 mg Documented By: ELKE Morphine Sulfate (Morphine Sulfate 4 Mg/Ml Cartridge) 4 mg IVPUSH Q4H PRN; Protocol PRN Reason: Pain, Severe (Pain Scale 7-10) Last Admin: 04/11/22 05:05 Dose: 4 mg Documented By: DENISE Nicotine Polacrilex (Nicotine Polacrilex 2 Mg Gum) 4 mg BUCCAL Q1H PRN PRN Reason: Nicotine Cravings Last Admin: 04/08/22 18:47 Dose: 4 mg Documented By: ROBERTO Sodium Chloride (0.9 % Sodium Chloride Flush 3 Ml Syringe) 3 ml IVFLUSH QSHIFT [facility] Last Admin: 04/11/22 09:23 Dose: 3 ml Documented By: ELKE Labs CBC & Chem 7: 04/08/22 11:17 04/08/22 11:17 Assessment and Plan (1) Pneumonitis: Status: Acute Plan d#3 37yo F with OUD + tobacco abuse presenting with 1 wk of worsening dry cough + dyspnea, found to have severe wheezing + hypoxia # substance-induced pneumonitis - on IV steroids d#4, will continue standing/prn nebs, add cough medication encourage incentive spirometry and out of bed to chair, transition to by mouth prednisone and next 24 hours with possible discharge. # acute hypoxic respiratory failure - wean O2 as tolerated; currently on 2 L O2, not on home oxygen will gradually wean # OUD - Addiction Medicine consulted, started metahdone - HCV + HIV negative, HBV immune # tobacco abuse - NRT # VTE ppx: SCDs # dispo: anticipate home when off O2. Seen by Physical therapy no skilled therapy indicated. In my clinical judgment, the patient requires continued inpatient hospitalization for the following reasons: hypoxia Time Spent With Patient Time: Total time managing care of this patient today ____ minutes. Quality Stroke Does the patient have a stroke diagnosis?: No VTE Prior VTE?: No VTE Risk Level:: Medical - moderate - high VTE Device Contraindication: N/A - Device Ordered VTE Drug Contraindication: Treatment Not Indicated
[2022-04-11] MEDS: guaiFENesin DM 100/10/5 ML 5 ML SYRUP 10 ML PO ×2 (14:56→21:34)
--- NOTE | 2022-04-11 16:19 | MHC.RECOVRN ---
This feature writer met w/ patient, patient was awake, laying in bed when t/w entered room. Patient reports feeling ok. Patient reports difficulty with sleeping and nightmares due to cannabis withdrawal. Patient reports 1-5 nips daily. Patient states no history of withdrawals, no history of ETOH induced seizures. Patient states has restless legs, feels like related to crack use. Patient inquiring about 10 mg PRN dose in the evening, patient reports feels worse in the evening. This feature writer reviewed that MTD referral was sent to [facility] in [place]. Patient verbalized understanding. Reviewed findings with Provider Katelyn Paredes.
[2022-04-12 03:33] VITALS: BP 116/67; PULSE 70; RESP 17; TEMP 36.2; O2SAT 94
[2022-04-12 07:55] VITALS: BP 123/68; PULSE 78; RESP 18; TEMP 36.6; O2SAT 92
[2022-04-12 08:02] VITALS: PULSE 94; RESP 18; O2SAT 93
[2022-04-12] MEDS: 0.9 % Sodium Chloride Flush 3 ML SYRINGE IVFLUSH (08:25)
[2022-04-12] MEDS: predniSONE 10 MG TABLET 30 MG PO (08:25)
[2022-04-12] MEDS: guaiFENesin DM 100/10/5 ML 5 ML SYRUP 10 ML PO (08:25)
[2022-04-12] MEDS: methADONE HCl 20 MG/2 ML ORAL.CONC 55 MG PO (08:26)
--- NOTE | 2022-04-12 09:41 | MHC.RECOVRN ---
Met with pt in 344 to follow up regarding methadone initiation and discharge plan. Pt is going to continue with methadone at [facility] in [place], referral has been sent, pt all set to present 04/13 before 11:30AM. Pt wishes to stabilize on methadone and possibly switch to Suboxone/Sublocade. Pt provided with resources and t/w contact information if needed. CM aware.
--- NOTE | 2022-04-12 09:54 | MHC.CM.PN ---
JESICA PT WILL BE CLEARED FOR D/C HOME SELF CARE TODAY, PT NOW DECLINING DETOX AND WILL GO TO [facility] AND ADDRESS/PHONE AND INSTRUCTIONS TO ARRIVE BEFORE 11:30AM HAVE BEEN ADDED TO D/C PAPERWORK, PT WILL ARRANGE HER OWN RIDE.
--- NOTE | 2022-04-12 09:56 | PM.DS ---
DS: Providers Provider Date of Service: 04/12/22 Date of admission: 04/08/22 16:40 Primary care physician: None Physician Consults: 04/08/22 16:40 Addiction Medicine Routine Consulting Provider: Addiction Covering Reason for consultation: Heroin use disorder, withdrawal Has provider been notified: No DS: Diagnosis Discharge Diagnosis (1) Pneumonitis: Status: Acute DS: Summary Hospital Course Hospital Course: History of presenting illness Chief Complaint: ? ? ? SOB?Pt is a 37-year-old female with a PMH significant for polysubstance abuse who presents to the ED with shortness of breath and cough. Pt states the symptoms have been ongoing for about 1 week but have gradually been worsening and she has been ?unable to breathe? for the past 24 hours. Patient denies history of asthma but says she has felt similar to this when she was diagnosed with bronchitis in August of this year.? Patient has a history of daily vaping and also notes she snorted heroin earlier this morning and now feels like she is going through withdrawal. Has been sweating and feels ?awful? but denies fever, chills, nausea, vomiting.? No abdominal pain. EMS noted the patient was satting at 81% on room air.? Patient placed on 2L nasal cannula which improved her O2 sat 97% In the ED labs were significant for leukocytosis of 13.2 though with no left shift, tox screen positive for opiates, fentanyl, benzos, cocaine.? D-dimer pending. CXR was clear. Pt was treated with steroids by EMS and received 3 nebulizer treatments. Pt will be admitted to observation for treatment for pneumonitis. Hospital course 37yo F with OUD + tobacco abuse presenting with 1 wk of worsening dry cough + dyspnea, found to have severe wheezing + hypoxia patient diagnosed to have substance-induced pneumonitis, treated with IV steroids, as needed updraft treatment and cough medication patient shortness of breath and cough improved patient is now being discharged home on prednisone for 5 more days recommend to use albuterol as needed strongly recommend to abstain from smoking crowded places and use of illicit drugs. acute hypoxic respiratory failure due to above patient initially treated with oxygen upon discharge patient room air oxygenation is stable therefore does not qualify for home oxygen - wean O2 as tolerated; currently on 2 L O2, not on home oxygen will gradually wean Substance abuse disorder patient was seen by Addiction Team and has been placed on methadone, hepatitis C +HIV is negative hepatitis-B virus is immune she has been recommended outpatient follow-up with [facility] In regard to tobacco use disorder patient has been strongly recommend to abstain from smoking and is being discharged home on Nicorette gum Time Spent with Patient Time attestation: Total time managing care of this patient today ____ minutes. Discharge coordination time: Greater than 30 minutes Quality: Safe Use of Opioids Does Pt have an Active Cancer Diagnosis on the Problem List?: No Quality: Stroke Does the patient have a stroke diagnosis?: No Physical Exam Vital Signs: Vital Signs: Last Vital Signs Temp 98 F 04/12/22 07:55 Pulse 94 04/12/22 08:02 Resp 18 04/12/22 08:02 BP 123/68 04/12/22 07:55 Pulse Ox 92 04/12/22 07:55 O2 Del Method 04/12/22 07:55 O2 Flow Rate 2 04/12/22 03:33 Oxygen Flow Rate 5 04/08/22 11:07 BMI result Body Mass Index 29.2 Const: Other: Gen:? Awake alert x3, in no acute distress HEENT: sclera anicteric, moist mucus membranes Neck: supple Lungs:? Coarse expiratory breath sounds, good air movement no use of accessory muscles Heart: regular rate and rhythm, no murmurs Abd: soft, non-tender, non-distended Ext: no edema Skin: warm/well-perfused Neuro: alert and oriented x3, no focal findings Psych: anxious Discharge Plan Discharge Anticipated Discharge Date/Time: 04/12/22 09:49 Patient Disposition: Home, Self-Care Discharge Diagnosis: Substance induced pneumonitis Acute hypoxic respiratory failure Tobacco use disorder Substance use disorder Referrals: [facility] [Other] - 1 Day (PLEASE ARRIVE TOMORROW 04/13 BEFORE 11:30AM FOR INTAKE APPT. ) Physician,None [Primary Care Provider] - 1 Week Discharge Medications: New nicotine (polacrilex) 2 mg Gum 4 mg buccal Q1H PRN (Reason: Nicotine Cravings) Qty: 40 0RF prednisone 20 mg tablet 20 mg PO DAILY Qty: 5 0RF albuterol sulfate 90 mcg/actuation HFA aerosol inhaler 2 puff inhalation Q6H PRN (Reason: shortness of breath or wheezing) Qty: 8.5 0RF Discharge Orders: Discharge Order (Routine); Ordered 04/12/22 Ordered By: Saud Muir Diet: Advance to usual diet Activity on Discharge: As tolerated Stand Alone Forms: Patient Portal Discharge page Care Plan Goals: Strongly recommend to abstain from smoking and use of illicit drugs, In regard to shortness of breath take prednisone and as needed cough syrup and albuterol inhaler, return to check with worsening shortness of breath chest pain lightheadedness or dizziness Health Concerns: Complete abstinence from illicit drugs and smoking Plan of Treatment: Outpatient follow-up with primary care physician and at [facility] for appointment Assessment: As above
== END 2022-04-12 12:02 | disposition home or self-care (01) | DRG 917 ==
LOC: HO.ED 16:07 → HO.EDOVER 17:21 → HO.S3 19:59 → HO.EDOVER 04-09 12:16 → HO.S3 04-09 12:16
PROVIDERS: Admitting Provider Student in an Organized Health Care Education/Training Program; Emergency Provider Student in an Organized Health Care Education/Training Program; Visit Provider Hospitalist
DX: T40.1X1A Poisoning by heroin, accidental (unintentional), initial encounter (principal); J96.01 Acute respiratory failure with hypoxia; F11.20 Opioid dependence, uncomplicated; J70.4 Drug-induced interstitial lung disorders, unspecified; F17.210 Nicotine dependence, cigarettes, uncomplicated; F19.10 Other psychoactive substance abuse, uncomplicated; Z71.6 Tobacco abuse counseling; Z20.822 Contact with and (suspected) exposure to COVID-19; Z88.1 Allergy status to other antibiotic agents; Z88.5 Allergy status to narcotic agent
CPT/HCPCS: 36415; 71045; 80053; 80307; 81003; 81025; 85025; 85379; 86704; 86706; 86803; 87340; 87389; 87502; 87635; 94640; 97162; 99285; J2270; J2920; J2930

== ENCOUNTER 2023-03-01 19:13 | Inpatient (IN) | payer OTHER, SELFPAY ==
--- NOTE | ~2023-03-01 | XR_ITS ---
EXAMINATION: XR CHEST CLINICAL INFORMATION: Shortness of breath COMPARISON: 04/08/2022 TECHNIQUE: 2 views of the chest were obtained. FINDINGS: No significant abnormality is noted involving the heart, lungs, mediastinum, bony thorax or soft tissues. XR/XR chest 2V IMPRESSION: Unremarkable examination.
[2023-03-01 19:18] VITALS: BP 128/63; BP 146/78; PULSE 108; PULSE 97; RESP 20; TEMP 36.7; O2SAT 88; O2SAT 91; BMI 33.4
--- NOTE | 2023-03-01 19:31 | PC.NURSE ---
pt report she went to [facility] last [facility]10 days ago and finished the Zpak. it helped some but did not get rid of bronchitis, now feels it is worse than before
[2023-03-01 21:23] LABS: MANUAL DIFF FLAG NO
[2023-03-01 21:24] LABS: Basophils Absolute Auto 0.1 X10*3/uL (0.0-0.2); Basophils Percent Auto 0.5 % (0-2); Eosinophils Absolute Auto 0.4 X10*3/uL (0.0-0.4); Eosinophils Percent Auto 2.3 % (0-4); Hematocrit 40.9 % (37.0-47.0); Imm Gran Abs Auto 0.06 X10*3/uL (0.00-0.03); Imm Gran Pct Auto 0.4 % (0.0-0.4); Lymphocytes Percent Auto 6.6 % (20-40); Mean Corpuscular HGB Conc 34.2 g/dl (31.0-35.0); Mean Corpuscular Hemoglobin 32.1 pg (27.0-33.0); Mean Corpuscular Volume 93.8 fL (80.0-98.0); Mean Platelet Volume 8.9 fL (9.4-12.3); Monocytes Absolute Auto 0.2 X10*3/uL (0.1-1.2); Monocytes Percent Auto 1.4 % (2-11); Neutrophils Absolute Auto 13.7 x10*3/uL (2.0-8.3); Neutrophils Percent Auto 88.8 % (45-73); Platelet Count 324 X10*3/uL (160-400); Red Blood Count 4.36 X10*6/uL (4.20-5.50); Red Cell Distribution Width 12.4 % (11.0-16.0); White Blood Count 15.4 X10*3/uL (4.8-10.8)
[2023-03-01 21:39] LABS: Alanine Aminotransferase 39 U/L (0-31); Alkaline Phosphatase 66 U/L (39-117); Anion Gap 11 (12-20); Aspartate Amino Transferase 33 U/L (5-31); Bilirubin Total 0.3 mg/dL (0.0-1.0); Blood Urea Nitrogen 14 mg/dL (9-16); Calcium 9.1 mg/dL (8.4-10.2); Carbon Dioxide 25 mmol/L (22-29); Chloride 107 mmol/L (96-108); Estimated Glomerular Filt Rate > 60; Glucose Random 92 mg/dL (60-115); Potassium 4.2 mmol/L (3.3-5.1); Sodium 139 mmol/L (135-145); Total Protein 7.1 g/dL (6.5-8.0)
--- NOTE | 2023-03-01 21:59 | ED_ITS ---
HPI - SOB/Dyspnea General Chief Complaint: Dyspnea Stated Complaint: DIFF BREATHING X1WK, ALBUTEROL GIVEN Time Seen by Provider: 03/01/23 21:50 Source: patient and EMS Mode of arrival: EMS Limitations: no limitations History of Present Illness HPI Narrative: 38-year-old female with history of bronchial asthma for about 2 years, patient is a former cigarette smoker now only smokes vape presented with cough, wheezing, difficulty breathing. Patient otherwise declined fever or chills, no sick contact, no recent travel, reviewing vital sign noticed that patient's O2 sat is ranging from 88-93% on room air. Related Data Previous Rx's Medication Instructions Recorded albuterol sulfate 90 mcg/actuation 2 puff inhalation Q6H PRN 04/12/22 aerosol inhaler shortness of breath or wheezing #8.5 grams nicotine (polacrilex) 2 mg gum 4 mg buccal Q1H PRN Nicotine 04/12/22 Cravings #40 ea prednisone 20 mg tablet 20 mg PO DAILY #5 tabs 04/12/22 Allergies Allergy/AdvReac Type Severity Reaction Status Date / Time doxycycline Allergy Unknown Verified 03/01/19 00:00 levofloxacin [Levaquin] Allergy Unknown Verified 03/01/19 00:00 tramadol Allergy Unknown Verified 03/01/19 00:00 Review of Systems 2 Review of Systems: All other systems are reviewed and are negative Constitutional: Reports as per HPI and Reports no additional constitutional complaints Eyes: Reports as per HPI and Reports no additional eye complaints Reports system reviewed and no additional complaints, except as documented Cardiovascular: Reports as per HPI and Reports no additional cardiovascular complaints Respiratory: Reports as per HPI and Reports no additional respiratory complaints Gastrointestinal: Reports as per HPI and Reports no additional gastrointestinal complaints Genitourinary: Reports no additional female genitourinary complaints Musculoskeletal: Reports no additional musculoskeletal complaints Skin/Breast: Reports system reviewed and no additional complaints, except as docu Psychiatric: Reports no additional psychiatric complaints Endocrine: Reports no additional endocrine complaints Hematologic/Lymphatic: Reports no additional hematologic/lymphatic complaints Allergic/Immunologic: Reports no additional allergic/immunologic complaints Reports system reviewed and no additional complaints, except as documented and Reports Abnormal speech present [facility] Social History Household Members: Family Housing: Apartment Do you presently have visiting nurse or other home services: No Alcohol intake: current Alcohol intake frequency: a few times a week Patient Tobacco Use Status: Current everyday Tobacco user Smoked in Last 30 Days: No Second Hand Smoke Exposure: No Use of substances other than those prescribed or required for medical reasons: Yes Substance Use Type: Crack/Cocaine and Opiates Substance Use Type Other:: methadone Substance Use Frequency: Daily Last Used Substance: Days (ago) Advance Directives: No Advance Directives Information Provided: No Patient : No service: No Current occupational status: unemployed Physical Exam 2 Vital Signs: Vital Signs: Last Vital Signs Temp 98.1 F 03/01/23 19:18 Pulse 97 03/01/23 23:08 Resp 16 03/01/23 23:08 BP 118/74 03/01/23 22:29 Pulse Ox 90 L 03/01/23 22:29 O2 Del Method Nasal Cannula 03/01/23 22:29 O2 Flow Rate 2 03/01/23 22:29 BMI result Body Mass Index 33.4 Vital signs have been reviewed and appear to be correct. Blood pressure elevated. Heart rate normal. Respiratory rate normal. Temperature normal. Hypoxic. Appearance: Alert. Oriented X3. No acute distress. Head: Normal external exam. Normocephalic. Atraumatic. No Man signs noted. No raccoon eyes noted Eyes: PERRLA. EOMI. Conjunctiva and sclera normal. Eyelids normal. ENT: TM's Normal. Pharynx normal. Uvula midline. Moist mucous membranes. No trismus noted. No drooling noted. No muffled voice noted. Neck: Normal inspection. Neck supple. FROM. No adenopathy. Thyroid Normal. No meningeal signs. No neck mass noted. CVS: Normal heart rate and rhythm. Heart sound normal. No murmurs noted. Pulses normal throughout. Respiratory: No respiratory distress. Painless inspiration. Breath sounds diminished bilaterally, diffuse mild expiratory wheezing with prolonged expiration. Chest nontender. No accessory muscle usage noted or decreased air movement noted. Abdomen: Soft and nontender. Bowel sounds normal in all 4 quadrants. No distention noted. No organomegaly noted. No visible injury noted. Back: No CVA tenderness. Full range of motion noted. Skin: Skin warm and dry. Normal skin color. Normal skin turgor. No rashes/lesions/lacerations noted. Extremities: No lower extremity edema. Extremities exhibit normal range of motion. Extremities nontender. Neuro: Oriented X 3. Cranial nerve exam: II-XII are grossly intact No motor deficit. No sensory deficit. Reflexes normal. Course Reevaluation(s) Reevaluation #1: 38-year-old female formal cigarette smoker came in for worsening of asthma symptoms. Patient has been hypoxic on room air with improvement with 2 L of supplement oxygen. Time: 23:40 Medications Administered Discontinued Medications Generic Name Dose Route Start Last Admin Trade Name Janina PRN Reason Stop Dose Admin Albuterol Sulfate 5 mg/ 7.5 mg 03/01/23 22:18 03/01/23 22:22 Albuterol Sulfate 2.5 mg INHALE 03/01/23 22:19 7.5 mg ONCE ONE Administration Albuterol Sulfate 5 mg/ 0 mg 03/01/23 23:02 03/01/23 23:05 Albuterol/Ipratropium 3 ml INHALE 03/01/23 23:03 7.5 each ONCE ONE Administration Methylprednisolone Sodium Succinate 125 mg 03/01/23 21:58 03/01/23 22:28 Methylprednisolone Sod Succ 125 Mg/2 Ml Vial IVPUSH 03/01/23 21:59 125 mg ONCE ONE Administration Medical Decision Making Differential Diagnosis Differential Diagnoses: The differential diagnosis associated with the presentation includes (Asthma exacerbation, viral bronchitis, pneumonia, pneumothorax, pleural effusion, severe anemia, electrolyte abnormality.) Admission/Observation Consideration of admission/observation: Escalation of care including admission/observation considered Consult Healthcare Provider Management of the patient was discussed with: Hospitalist (Dr. Tucker) Lab Data MDM Lab Attestation statement: I reviewed the patient's lab results. 03/01/23 21:19 03/01/23 21:19 Labs: Lab Results 03/01/23 Range/Units 21:19 WBC 15.4 H (4.8-10.8) X10*3/uL RBC 4.36 (4.20-5.50) X10*6/uL Hgb 14.0 (12.0-16.0) g/dl Hct 40.9 (37.0-47.0) % MCV 93.8 (80.0-98.0) fL MCH 32.1 (27.0-33.0) pg MCHC 34.2 (31.0-35.0) g/dl RDW 12.4 (11.0-16.0) % Plt Count 324 (160-400) X10*3/uL MPV 8.9 L (9.4-12.3) fL Immature Gran % (Auto) 0.4 (0.0-0.4) % Neut % (Auto) 88.8 H (45-73) % Lymph % (Auto) 6.6 L (20-40) % [place] % (Auto) 1.4 L (2-11) % Eos % (Auto) 2.3 (0-4) % Baso % (Auto) 0.5 (0-2) % Lymph # (Auto) 1.0 L (1.2-4.9) X10*3/uL [place] # (Auto) 0.2 (0.1-1.2) X10*3/uL Eos # (Auto) 0.4 (0.0-0.4) X10*3/uL Baso # (Auto) 0.1 (0.0-0.2) X10*3/uL Abs Immat Gran (auto) 0.06 H (0.00-0.03) X10*3/uL Absolute Neuts (auto) 13.7 H (2.0-8.3) x10*3/uL Absolute Nucleated RBC 0.000 (0.0-0.012) X10*3/uL Nucleated RBC % (auto) 0.0 (0.0-0.2) /100WBC Sodium 139 (135-145) mmol/L Potassium 4.2 (3.3-5.1) mmol/L Chloride 107 (96-108) mmol/L Carbon Dioxide 25 (22-29) mmol/L Anion Gap 11 L (12-20) BUN 14 (9-16) mg/dL Creatinine 0.79 (0.5-1.4) mg/dL Estim Creat Clear Calc 100.0 Estimated GFR > 60 Random Glucose 92 (60-115) mg/dL Calcium 9.1 (8.4-10.2) mg/dL Total Bilirubin 0.3 (0.0-1.0) mg/dL AST 33 H (5-31) U/L ALT 39 H (0-31) U/L Alkaline Phosphatase 66 (39-117) U/L Total Protein 7.1 (6.5-8.0) g/dL Albumin 4.0 (3.5-5.0) g/dL Independent Interpretation I performed an independent interpretation of an: Plain X-Ray (Chest: No acute interthoracic pathology) Radiology Impression Discussion of test interpretation with radiology: I have reviewed the radiologist's reading. Chronic Conditions Patient?s care impacted by: Other (Bronchial asthma) Discharge Plan Discharge Clinical Impression: Asthma with exacerbation Patient Disposition: Admitted As Inpatient
[2023-03-01] MEDS: Albuterol Sulfate 5 MG, Albuterol Sulfate (0.083%) 2.5 MG 7.5 MG INHALE (22:22)
[2023-03-01 22:23] VITALS: PULSE 94; RESP 18; O2SAT 89
[2023-03-01] MEDS: methylPREDNISolone Sod Succ 125 MG/2 ML VIAL IVPUSH (22:28)
[2023-03-01 22:29] VITALS: BP 118/74; PULSE 97; RESP 16; O2SAT 90
--- NOTE | 2023-03-01 22:34 | PC.NURSE ---
respiratory at bedside for breathing treatment. aware of O2 sat
[2023-03-01] MEDS: Albuterol Sulfate 5 MG, Albuterol/Iprat 2.5/0.5MG 3 ML 3 ML INHALE (23:05)
[2023-03-01 23:08] VITALS: PULSE 97; RESP 16; O2SAT 90
[2023-03-02] VITALS (11 sets, daily range): BP systolic 108–143; BP diastolic 55–71; PULSE 72–118; RESP 15–18; TEMP 36.1–36.8; O2SAT 91–95
[2023-03-02] MEDS: 0.9 % Sodium Chloride Flush 3 ML SYRINGE IVFLUSH ×4 (00:28→21:17)
[2023-03-02] MEDS: Enoxaparin Sodium 40 MG/0.4 ML SYRINGE SUBCUT (00:28)
[2023-03-02 00:59] LABS: Influenza A PCR NEGATIVE (Negative); Influenza B PCR NEGATIVE (Negative); Resp Syncy Virus RNA Qual PCR NEGATIVE (Negative); SARS COV2 PCR INHOUSE NEGATIVE (Negative)
[2023-03-02] MEDS: Ibuprofen 600 MG TABLET PO ×3 (01:28→18:34)
--- NOTE | 2023-03-02 01:32 | PC.NURSE ---
pt requesting pain medication for back pain. pt medicated per JUN. pt resting in bed. no complaints or needs at this time
--- NOTE | 2023-03-02 03:36 | PC.NURSE ---
pt resting comfortably with eyes closed, breathing even and unlabored. no apparent distress at this time. O2 93% on 2L
[2023-03-02] MEDS: Acetaminophen 325 MG TABLET 650 MG PO (05:37)
--- NOTE | 2023-03-02 05:44 | P.HPHOSP_ITS ---
History of Present Illness Date of Service: 03/01/23 Chief Complaint: Shortness of breath 38-year-old female past medical history of asthma comes into the hospital with complaints of difficulty breathing and wheezing. Patient reports that her symptoms started about 4 days ago, has had difficulty breathing not responding to her rescue inhaler Patient also reports a cough, no sputum production, no abdominal pain nausea or vomiting, no chest pain, no urinary symptoms and no lower extremity edema Patient does report using cocaine and opioids, last use of cocaine day of presentation On arrival to the ED patient hemodynamically stable satting 88% on room air Labs are significant for WBC count of 15.4, slightly elevated LFTs with an AST of 33, ALT of 39, Viral panel negative Chest x-ray negative Patient started on IV Solu-Medrol, O2, and will be admitted for further management Review of Systems 2 Review of Systems: Yes all other systems are reviewed and are negative [facility] Medical History (Updated 03/02/23 @ 05:51 by Heather Tucker MD) History of asthma Surgical History (Updated 03/02/23 @ 05:51 by Heather Tucker MD) No pertinent past surgical history Household Members: Family Housing: Apartment Do you presently have visiting nurse or other home services: No Alcohol intake: current Alcohol intake frequency: a few times a week Patient Tobacco Use Status: Current everyday Tobacco user Smoked in Last 30 Days: No Second Hand Smoke Exposure: No Use of substances other than those prescribed or required for medical reasons: Yes Substance Use Type: Crack/Cocaine and Opiates Substance Use Type Other:: methadone Substance Use Frequency: Daily Last Used Substance: Days (ago) Advance Directives: No Advance Directives Information Provided: No Nutrition Risks: No Nutritional Risk Patient : No service: No Current occupational status: unemployed Meds Allergies Allergy/AdvReac Type Severity Reaction Status Date / Time doxycycline Allergy Unknown Verified 03/01/19 00:00 levofloxacin [Levaquin] Allergy Unknown Verified 03/01/19 00:00 tramadol Allergy Unknown Verified 03/01/19 00:00 Active Medications: Current Medications Acetaminophen (Acetaminophen 325 Mg Tablet) 650 mg PO Q6H PRN PRN Reason: Pain, Mild (Pain Scale 1-3) Last Admin: 03/02/23 05:37 Dose: 650 mg Albuterol/Ipratropium (Albuterol/Iprat 2.5/0.5mg 3 Ml Ampul.Neb) 3 ml INHALE RQ4H PRN PRN Reason: Shortness of Breath/Wheezing Albuterol/Ipratropium (Albuterol/Iprat 2.5/0.5mg 3 Ml Ampul.Neb) 3 ml INHALE RQ4H WHILE AWAKE [facility] Enoxaparin Sodium (Enoxaparin Sodium 40 Mg/0.4 Ml Syringe) 40 mg SUBCUT BEDTIME [facility] Last Admin: 03/02/23 00:28 Dose: 40 mg Methylprednisolone Sodium Succinate (Methylprednisolone Sod Succ 40 Mg/Ml Vial) 40 mg IVPUSH BID BRANDI Ondansetron HCl (Ondansetron Hcl 4 Mg/2 Ml Vial) 4 mg IVPUSH Q8H PRN PRN Reason: Nausea and Vomiting Sodium Chloride (0.9 % Sodium Chloride Flush 3 Ml Syringe) 3 ml IVFLUSH QSHIFT [facility] Last Admin: 03/02/23 00:28 Dose: 3 ml Physical Exam 2 Vital Signs and Narrative: Vital Signs: Last Vital Signs Temp 98.1 F 03/01/23 19:18 Pulse 102 H 03/02/23 04:53 Resp 17 03/02/23 04:53 BP 126/65 03/02/23 04:53 Pulse Ox 95 03/02/23 04:53 O2 Del Method Room Air 03/02/23 04:53 O2 Flow Rate 2 03/02/23 00:03 BMI result Body Mass Index 33.4 Const: General: cooperative and no acute distress O rientation/consciousness: patient oriented x3 Eyes: General: appearance normal, both eyes and all related structures Resp: Other: Expiratory wheezing Effort & Inspection: normal respiratory effort Cardio: Rate: regular rate Rhythm: regular rhythm GI: Palpation (GI): Soft to palpation Auscultation: normal bowel sounds Skin: General skin exam: no rashes or lesions noted Neuro: General: patient oriented x3 Cognition (Neuro): normal cognition Extrem: General: Yes normal to inspection and Yes no pedal edema Results Labs 03/01/23 21:19 03/01/23 21:19 Labs: Laboratory Results - last 24 hr 03/01/23 03/02/23 21:19 00:01 MCV 93.8 MCH 32.1 MCHC 34.2 RDW 12.4 Plt Count 324 MPV 8.9 L Immature Gran % (Auto) 0.4 Neut % (Auto) 88.8 H Lymph % (Auto) 6.6 L [place] % (Auto) 1.4 L Eos % (Auto) 2.3 Baso % (Auto) 0.5 Lymph # (Auto) 1.0 L [place] # (Auto) 0.2 Eos # (Auto) 0.4 Baso # (Auto) 0.1 Abs Immat Gran (auto) 0.06 H Absolute Neuts (auto) 13.7 H Absolute Nucleated RBC 0.000 Nucleated RBC % (auto) 0.0 Anion Gap 11 L Estim Creat Clear Calc 100.0 Estimated GFR > 60 Random Glucose 92 Calcium 9.1 Total Bilirubin 0.3 AST 33 H ALT 39 H Alkaline Phosphatase 66 Total Protein 7.1 Albumin 4.0 Influenza Type A (PCR) NEGATIVE Influenza Type B (PCR) NEGATIVE RSV RNA Qual (PCR) NEGATIVE SARS-CoV-2 RNA (RT-PCR) NEGATIVE Imaging Radiologist's Impressions: Impressions Chest X-Ray 03/01/23 22:05 IMPRESSION: Unremarkable examination. Assessment and Plan (1) Acute hypoxic respiratory failure: Status: Acute (2) Asthma with exacerbation: Qualifiers: Asthma severity: moderate Asthma persistence: unspecified Qualified Code(s): J45.901 - Unspecified asthma with (acute) exacerbation Status: Acute (3) Polysubstance use disorder: Status: Acute (4) Opioid use disorder: Status: Acute Plan 30-year-old female with history of asthma and possible since abuse comes into the hospital complaints of shortness of breath and asthma exacerbation # acute hypoxic respiratory failure - hypoxic at 88% on room air - likely multifactorial to the setting of asthma exacerbation as well as cocaine abuse - patient will be treated with oxygen as needed - monitor respiratory status # asthma exacerbation - has wheezing, dyspnea, - likely exacerbated by cocaine abuse - will treat with DuoNeb p.r.n. as well as schedule as well as Solu-Medrol - monitor respiratory status # all substance use disorder including cocaine as well as opioid - addiction medicine consult DVT prophylaxis: Lovenox Given patient's need for oxygen patient require minimum 2 nights inpatient hospital stay for further management and monitoring Quality Stroke Does the patient have a stroke diagnosis?: No VTE Prior VTE?: No VTE Risk Level:: Medical - low VTE Device Contraindication: Treatment Not Indicated VTE Drug Contraindication: N/A - Med Ordered
--- NOTE | 2023-03-02 05:46 | PC.NURSE ---
pt awake at this time. c/o back pain. pt medicated per MAR
[2023-03-02 06:09] LABS: MANUAL DIFF FLAG NO
[2023-03-02 06:29] LABS: Anion Gap 13 (12-20); Blood Urea Nitrogen 16 mg/dL (9-16); Carbon Dioxide 18 mmol/L (22-29); Chloride 108 mmol/L (96-108); Creatinine Clr Calc Pharmacy 91.9; Estimated Glomerular Filt Rate > 60; Glucose Random 211 mg/dL (60-115); Potassium 3.6 mmol/L (3.3-5.1); Sodium 135 mmol/L (135-145)
[2023-03-02 06:40] LABS: Basophils Percent Auto 0.3 % (0-2); Hemoglobin 13.5 g/dl (12.0-16.0); Imm Gran Abs Auto 0.08 X10*3/uL (0.00-0.03); Imm Gran Pct Auto 0.8 % (0.0-0.4); Lymphocytes Percent Auto 9.5 % (20-40); Mean Corpuscular HGB Conc 34.6 g/dl (31.0-35.0); Mean Corpuscular Hemoglobin 32.9 pg (27.0-33.0); Mean Corpuscular Volume 95.1 fL (80.0-98.0); Mean Platelet Volume 9.4 fL (9.4-12.3); Monocytes Absolute Auto 0.1 X10*3/uL (0.1-1.2); Neutrophils Absolute Auto 9.3 x10*3/uL (2.0-8.3); Neutrophils Percent Auto 88.4 % (45-73); Platelet Count 344 X10*3/uL (160-400); Red Cell Distribution Width 12.6 % (11.0-16.0); White Blood Count 10.5 X10*3/uL (4.8-10.8)
[2023-03-02] MEDS: Albuterol/Iprat 2.5/0.5MG 3 ML AMPUL.NEB INHALE ×4 (08:38→19:37)
--- NOTE | 2023-03-02 08:48 | MHC.RECOVRN ---
Briefly met with pt in ED22 as pt was being seen by RT. Addiction Medicine consult received for opioid and cocaine use. Pt had been BIBA from home for SOB had gone to and was dx with bronchitis however continued with SOB while at home. Upon ED evaluation, pt admitted for acute hypoxic respiratory failure and asthma with exacerbation. Pt sitting in bed, awake, alert, receiving breathing treatment. Pt reports receiving methadone through [facility] [place], 75 mg daily. Per nursing at [facility], pt last received 75 mg on 02/28/23. RN aware. Will continue to follow.
--- NOTE | 2023-03-02 08:56 | PHA.MEDREC ---
Pharmacy Consult ? Medication Reconciliation Pharmacy has completed the medication reconciliation. Spoke with patient. Patient on methadone and uses [facility]
--- NOTE | 2023-03-02 08:57 | HE.PHANOTE ---
Methadone Verification Spoke with Melly at [facility] on 03/02/23 @[phone]. Methadone dose is 75 mg daily. Last dose was on 02/28/23. CLinic phone number = [phone].
[2023-03-02] MEDS: methylPREDNISolone Sod Succ 40 MG/ML VIAL IVPUSH ×2 (09:34→21:17)
[2023-03-02] MEDS: methADONE HCl 20 MG/2 ML ORAL.CONC 75 MG PO (09:35)
--- NOTE | 2023-03-02 10:00 | PC.NURSE ---
remains awake, alert and oriented at this time. attempted to take patient off oxygen, however oxygen dropped to 87-89% while at rest - denies any shortness of breath or difficulty breathing. patient now 93% 2L. ambulates independently with steady gait to bathroom. call coffman within reach, report given.
[2023-03-02] MEDS: hydrOXYzine HCL 50 MG TABLET PO ×2 (10:31→18:34)
--- NOTE | 2023-03-02 11:37 | P.PNIM_ITS ---
Subjective Subjective Date of Service: 03/02/23 Interval History: Notes marked improvement since admission. Lying semi Lance's breathing easily Review of Systems Denies chest pain Admits shortness of breath but improved Denies nausea vomiting diarrhea Denies fever chills Physical Exam 2 Vital Signs: Vital Signs: Last Vital Signs Temp 97.0 F 03/02/23 11:04 Pulse 72 03/02/23 11:27 Resp 18 03/02/23 11:27 BP 143/68 H 03/02/23 11:04 Pulse Ox 93 03/02/23 11:04 O2 Del Method Nasal Cannula 03/02/23 11:04 O2 Flow Rate 2 03/02/23 11:04 BMI result Body Mass Index 33.4 Const: Other: No acute distress. Speaking in full sentences Resp: Other: Diminished at bases with expiratory wheezes noted Cardio: Other: No S4; positive S1-S2; no S3 murmurs rubs or gallops GI: Other: Soft nontender nondistended normoactive bowel sounds Extrem: Other: No edema bilaterally Objective Data Active Medications Acetaminophen (Acetaminophen 325 Mg Tablet) 650 mg PO Q6H PRN PRN Reason: Pain, Mild (Pain Scale 1-3) Last Admin: 03/02/23 05:37 Dose: 650 mg Documented By: ANDREINA Albuterol/Ipratropium (Albuterol/Iprat 2.5/0.5mg 3 Ml Ampul.Neb) 3 ml INHALE RQ4H PRN PRN Reason: Shortness of Breath/Wheezing Albuterol/Ipratropium (Albuterol/Iprat 2.5/0.5mg 3 Ml Ampul.Neb) 3 ml INHALE RQ4H WHILE AWAKE [facility] Last Admin: 03/02/23 11:25 Dose: 3 ml Documented By: LAMAR Enoxaparin Sodium (Enoxaparin Sodium 40 Mg/0.4 Ml Syringe) 40 mg SUBCUT BEDTIME [facility] Last Admin: 03/02/23 00:28 Dose: 40 mg Documented By: ANDREINA Hydroxyzine HCl (Hydroxyzine Hcl 50 Mg Tablet) 50 mg PO Q6H PRN PRN Reason: anxiety/restlessness Last Admin: 03/02/23 10:31 Dose: 50 mg Documented By: NANCY Ibuprofen (Ibuprofen 600 Mg Tablet) 600 mg PO Q6H PRN PRN Reason: Pain, Mild (Pain Scale 1-3) Last Admin: 03/02/23 11:31 Dose: 600 mg Documented By: JOEY Methadone HCl (Methadone Hcl 20 Mg/2 Ml Oral.Conc) 75 mg PO DAILY [facility] Last Admin: 03/02/23 09:35 Dose: 75 mg Documented By: NANCY Methylprednisolone Sodium Succinate (Methylprednisolone Sod Succ 40 Mg/Ml Vial) 40 mg IVPUSH BID [facility] Last Admin: 03/02/23 09:34 Dose: 40 mg Documented By: NANCY Ondansetron HCl (Ondansetron Hcl 4 Mg/2 Ml Vial) 4 mg IVPUSH Q8H PRN PRN Reason: Nausea and Vomiting Sodium Chloride (0.9 % Sodium Chloride Flush 3 Ml Syringe) 3 ml IVFLUSH QSHIFT [facility] Last Admin: 03/02/23 09:33 Dose: 3 ml Documented By: NANCY Labs 03/02/23 05:57 03/02/23 05:57 Labs: Laboratory Results - last 24 hr 03/01/23 03/02/23 03/02/23 21:19 00:01 05:57 MCV 93.8 95.1 MCH 32.1 32.9 MCHC 34.2 34.6 RDW 12.4 12.6 Plt Count 324 344 MPV 8.9 L 9.4 Immature Gran % (Auto) 0.4 0.8 H Neut % (Auto) 88.8 H 88.4 H Lymph % (Auto) 6.6 L 9.5 L [place] % (Auto) 1.4 L 1.0 L Eos % (Auto) 2.3 0.0 Baso % (Auto) 0.5 0.3 Lymph # (Auto) 1.0 L 1.0 L [place] # (Auto) 0.2 0.1 Eos # (Auto) 0.4 0.0 Baso # (Auto) 0.1 0.0 Abs Immat Gran (auto) 0.06 H 0.08 H Absolute Neuts (auto) 13.7 H 9.3 H Absolute Nucleated RBC 0.000 0.000 Nucleated RBC % (auto) 0.0 0.0 Anion Gap 11 L 13 Estim Creat Clear Calc 100.0 91.9 Estimated GFR > 60 > 60 Random Glucose 92 211 H Calcium 9.1 9.0 Total Bilirubin 0.3 AST 33 H ALT 39 H Alkaline Phosphatase 66 Total Protein 7.1 Albumin 4.0 Influenza Type A (PCR) NEGATIVE Influenza Type B (PCR) NEGATIVE RSV RNA Qual (PCR) NEGATIVE SARS-CoV-2 RNA (RT-PCR) NEGATIVE Assessment and Plan (1) Acute hypoxic respiratory failure: Status: Acute (2) Asthma with exacerbation: Status: Acute (3) Opioid use disorder: Status: Acute Plan 30-year-old female with history of asthma and possible since abuse comes into the hospital complaints of shortness of breath and asthma exacerbation; good response to therapy. Breathing easier 1.Acute hypoxic respiratory failure secondary to asthma exacerbation - hypoxic at 88% on room air... Acceptable sats on 2 L - DuoNeb/supplemental oxygen to maintain sats greater than equal 90%/pulse dose steroids 2. Polysubstance abuse -methadone verified in order; 75 mg daily -addiction consult Lovenox Full code Requires ongoing since hospitalization for supplemental O2 IV steroids Quality Stroke Does the patient have a stroke diagnosis?: No VTE Prior VTE?: No VTE Risk Level:: Medical - low VTE Device Contraindication: Treatment Not Indicated VTE Drug Contraindication: N/A - Med Ordered
--- NOTE | 2023-03-02 15:00 | MHC.RECOVRN ---
Met with pt to follow up after Addiction Medicine consult. Pt laying in bed, awake, alert, easily engages in conversation, best friend at bedside. Pt reports having been on methadone since initiated here in April and is currently using heroin/fentanyl 1-2 bags, INH, daily, along with cocaine, INH. Pt reports having switched from IN use to INH due to problems with my lungs. Discussed harm reduction. Pt reports meeting with staff at the [facility] last week and has plans to go to [facility] as soon as referral is processed. Pt plans to discontinue methadone and initiate Suboxone with plan for Sublocade. Discussed different Suboxone induction methods, encouraged pt to speak with [facility] staff regarding which method would be appropriate at that time. Pt reports desire to return to work when stable and receiving Sublocade. Discussed other recovery resources/options, pt declines at this time. Feels comfortable with plan pt has made with the [facility]. Pt denies questions or concerns for t/w. Katelyn Paredes APRN, aware.
--- NOTE | 2023-03-02 15:03 | MHC.CM.PN ---
PT REPORTS SHE LIVES AT HOME WITH FAMILY AND IS INDEPENDENT WITH CARE SHE DENIES USE OF DME OR HOME SERVICES SHE DOES NOT HAVE A PCP AT THIS TIME BUT SAYS SHE IS [facility] PT WILL COMPLETE A HCP NAMING HER S/O, JOSEFINA PALMER [phone] HER AGENT DCP: HOME NO SERVICES VIA PRIVATE TRANSPORT
[2023-03-03 04:00] VITALS: BP 106/62; PULSE 76; RESP 16; TEMP 36.6; O2SAT 93
[2023-03-03 06:26] LABS: Alanine Aminotransferase 32 U/L (0-31); Albumin Level 3.8 g/dL (3.5-5.0); Alkaline Phosphatase 60 U/L (39-117); Anion Gap 13 (12-20); Aspartate Amino Transferase 19 U/L (5-31); Bilirubin Total 0.2 mg/dL (0.0-1.0); Blood Urea Nitrogen 19 mg/dL (9-16); Calcium 8.9 mg/dL (8.4-10.2); Carbon Dioxide 20 mmol/L (22-29); Chloride 109 mmol/L (96-108); Creatinine Clr Calc Pharmacy 94.1; Estimated Glomerular Filt Rate > 60; Glucose Fasting 155 mg/dL (60-99); Potassium 4.2 mmol/L (3.3-5.1); Sodium 138 mmol/L (135-145); Total Protein 6.6 g/dL (6.5-8.0)
[2023-03-03 06:29] LABS: Basophils Percent Auto 0.2 % (0-2); Hematocrit 38.4 % (37.0-47.0); Hemoglobin 13.1 g/dl (12.0-16.0); Imm Gran Abs Auto 0.35 X10*3/uL (0.00-0.03); Imm Gran Pct Auto 1.5 % (0.0-0.4); Lymphocytes Absolute Auto 1.8 X10*3/uL (1.2-4.9); Lymphocytes Percent Auto 7.5 % (20-40); MANUAL DIFF FLAG SCAN; Mean Corpuscular HGB Conc 34.1 g/dl (31.0-35.0); Mean Corpuscular Hemoglobin 32.9 pg (27.0-33.0); Mean Corpuscular Volume 96.5 fL (80.0-98.0); Mean Platelet Volume 9.8 fL (9.4-12.3); Monocytes Percent Auto 4.1 % (2-11); Neutrophils Absolute Auto 20.9 x10*3/uL (2.0-8.3); Neutrophils Percent Auto 86.7 % (45-73); Platelet Count 377 X10*3/uL (160-400); Red Blood Count 3.98 X10*6/uL (4.20-5.50); Red Cell Distribution Width 13.2 % (11.0-16.0); SCAN SMEAR FLAG 1; White Blood Count 24.1 X10*3/uL (4.8-10.8)
[2023-03-03 07:27] VITALS: BP 115/64; PULSE 75; RESP 16; TEMP 36.3; O2SAT 93
[2023-03-03 07:34] VITALS: PULSE 81; RESP 16; O2SAT 93
[2023-03-03] MEDS: Albuterol/Iprat 2.5/0.5MG 3 ML AMPUL.NEB INHALE ×3 (07:34→15:49)
[2023-03-03 08:24] LABS: SLIDE REVIEW VERIFIED
[2023-03-03] MEDS: methADONE HCl 20 MG/2 ML ORAL.CONC 75 MG PO (08:32)
[2023-03-03] MEDS: methylPREDNISolone Sod Succ 40 MG/ML VIAL IVPUSH (08:32)
[2023-03-03] MEDS: 0.9 % Sodium Chloride Flush 3 ML SYRINGE IVFLUSH (08:33)
[2023-03-03] MEDS: hydrOXYzine HCL 50 MG TABLET PO (08:41)
[2023-03-03] MEDS: Nicotine Polacrilex 2 MG GUM BUCCAL (09:34)
--- NOTE | 2023-03-03 10:20 | PM.EVENT ---
Event Note Date of Service: 03/03/23 Event Note: Addiction consult plaed for patient with OUD Met with medical anthropologist on 03/02. [facility]) plans to transition to Suboxone See RN note for additional details. No follow up indicated at this time Time Spent With Patient Time: Total time managing care of this patient today ____ minutes.
[2023-03-03 11:22] VITALS: PULSE 96; RESP 16; O2SAT 93
--- NOTE | 2023-03-03 13:37 | P.DS_ITS ---
DS: Providers Provider Date of Service: 03/03/23 Date of admission: 03/01/23 23:56 Date of discharge: 03/03/23 Primary care physician: None Physician Consults: 03/02/23 05:50 Addiction Medicine Routine Consulting Provider: Addiction Covering Reason for consultation: Opioid and cocaine addiction DS: Diagnosis Discharge Diagnosis (1) Acute hypoxic respiratory failure: Status: Acute (2) Asthma with exacerbation: Status: Acute (3) Opioid use disorder: Status: Acute DS: Summary Hospital Course Hospital Course: 38-year-old female past medical history of asthma comes into the hospital with complaints of difficulty breathing and wheezing. Patient reports that her symptoms started about 4 days ago, has had difficulty breathing not responding to her rescue inhaler Patient also reports a cough, no sputum production, no abdominal pain nausea or vomiting, no chest pain, no urinary symptoms and no lower extremity edema Patient does report using cocaine and opioids, last use of cocaine day of presentation On arrival to the ED patient hemodynamically stable satting 88% on room air Labs are significant for WBC count of 15.4, slightly elevated LFTs with an AST of 33, ALT of 39, Viral panel negative;Chest x-ray negative Patient started on IV Solu-Medrol, O2, and will be admitted for further management [facility] Patient admitted to general medical floor and given pulse dose steroids along with aggressive nebulizer treatment. Over the course the next 24 hours she improved markedly. At this point in time she is medically acceptable for discharge. She has been arranged to get a home nebulizer and will be given DuoNeb solution for same. She will be discharged on prednisone taper and strongly encouraged to follow up in [facility] Time Attestation Discharge coordination time: Greater than 30 minutes Quality: Safe Use of Opioids Does Pt have an Active Cancer Diagnosis on the Problem List?: No Quality: Stroke Does the patient have a stroke diagnosis?: No Physical Exam Vital Signs: Vital Signs: Last Vital Signs Temp 97.3 F 03/03/23 07:27 Pulse 96 03/03/23 11:22 Resp 16 03/03/23 11:22 BP 115/64 03/03/23 07:27 Pulse Ox 93 03/03/23 07:27 O2 Del Method Room Air 03/03/23 07:27 O2 Flow Rate 2 03/02/23 11:04 BMI result Body Mass Index 33.4 Const: Other: No acute distress. Speaking in full sentences Resp: Other: Diminished at bases with expiratory wheezes noted Cardio: Other: No S4; positive S1-S2; no S3 murmurs rubs or gallops GI: Other: Soft nontender nondistended normoactive bowel sounds Extrem: Other: No edema bilaterally DS: Data Data Completed and Pending Labs on day of discharge: Laboratory Results - last 24 hr 03/03/23 05:37 WBC 24.1 H RBC 3.98 L Hgb 13.1 Hct 38.4 MCV 96.5 MCH 32.9 MCHC 34.1 RDW 13.2 Plt Count 377 MPV 9.8 Immature Gran % (Auto) 1.5 H Neut % (Auto) 86.7 H Lymph % (Auto) 7.5 L [place] % (Auto) 4.1 Eos % (Auto) 0.0 Baso % (Auto) 0.2 Lymph # (Auto) 1.8 [place] # (Auto) 1.0 Eos # (Auto) 0.0 Baso # (Auto) 0.0 Abs Immat Gran (auto) 0.35 H Absolute Neuts (auto) 20.9 H Absolute Nucleated RBC 0.000 Nucleated RBC % (auto) 0.0 Smear Tech's Comments VERIFIED Sodium 138 Potassium 4.2 Chloride 109 H Carbon Dioxide 20 L Anion Gap 13 BUN 19 H Creatinine 0.84 Estim Creat Clear Calc 94.1 Estimated GFR > 60 Fasting Glucose 155 H Calcium 8.9 Total Bilirubin 0.2 AST 19 ALT 32 H Alkaline Phosphatase 60 Total Protein 6.6 Albumin 3.8 Discharge Plan Discharge Anticipated Discharge Date/Time: 03/03/23 13:32 Patient Disposition: Home, Self-Care Discharge Diagnosis: Asthma exacerbation Referrals: Physician,None [Primary Care Provider] - 1 Week Discharge Medications: New ipratropium-albuterol 0.5 mg-3 mg(2.5 mg base)/3 mL Solution For Nebulization 3 ml inhalation RQ4H PRN (Reason: Shortness Of Breath/Wheezing) Qty: 360 0RF albuterol sulfate [Ventolin HFA] 90 mcg/actuation Hfa Aerosol Inhaler 2 puff inhalation Q4H PRN (Reason: shortness of breath or wheezing) Qty: 8.5 3RF prednisone 10 mg tablet See Rx Instructions .Route .COMPLEX Qty: 45 0RF Rx Instructions: 10 mg orally; 5 tabs p.o. daily x3 days; 4 tabs p.o. daily x3 days; 3 tabs daily x3 days; 2 tabs daily x3 days; 1 tab daily x3 days Continued methadone 10 mg/mL Concentrate 75 mg PO DAILY Rx Instructions: DOSE VERIFIED WITH [facility] ON 03/02/23 @0845 Discontinued albuterol sulfate 0.63 mg/3 mL solution for nebulization 0.63 mg inhalation Q6H PRN (Reason: Shortness Of Breath Or Wheezing) albuterol sulfate 90 mcg/actuation HFA aerosol inhaler 2 puff inhalation Q4H PRN (Reason: shortness of breath or wheezing) Discharge Orders: Discharge Order (Routine); Ordered 03/03/23 Ordered By: Rufus Sandoval Diet: Advance to usual diet Activity on Discharge: As tolerated Stand Alone Forms: Patient Portal Discharge page Care Plan Goals: No further smoking. . . Anything Health Concerns: Complete prednisone taper as ordered. Use DuoNebs in nebulizer q.4 hours as needed Plan of Treatment: [facility] going forward Assessment: See discharge summary
--- NOTE | 2023-03-03 13:55 | MHC.CM.PN ---
hcp filed pt dcd home no servies
[2023-03-03 15:49] VITALS: PULSE 86; RESP 16; O2SAT 95
== END 2023-03-03 16:00 | disposition home or self-care (01) | DRG 917 ==
LOC: HO.ED 23:39 → HO.EDOVER 03-02 00:01 → HO.S3 03-02 08:59
PROVIDERS: Admitting Provider Internal Medicine; Emergency Provider Emergency Medicine; Visit Provider Hospitalist
DX: T40.5X1A Poisoning by cocaine, accidental (unintentional), initial encounter (principal); J96.01 Acute respiratory failure with hypoxia; F11.20 Opioid dependence, uncomplicated; J45.901 Unspecified asthma with (acute) exacerbation; F17.290 Nicotine dependence, other tobacco product, uncomplicated; Z20.822 Contact with and (suspected) exposure to COVID-19; Z79.899 Other long term (current) drug therapy
CPT/HCPCS: 0241U; 36415; 71046; 80048; 80053; 85025; 94640; 99285; J1650; J2920; J2930

== ENCOUNTER → 2023-03-01 23:56 | Outpatient (BNV) | payer OTHER, SELFPAY | PROVIDERS: Admitting Provider Internal Medicine; Emergency Provider Emergency Medicine; Visit Provider Internal Medicine | DX: J96.01 Acute respiratory failure with hypoxia (principal); J45.901 Unspecified asthma with (acute) exacerbation; F11.90 Opioid use, unspecified, uncomplicated | CPT/HCPCS: 99223; 99239; 99499 ==

== ENCOUNTER 2024-05-26 21:08 | Emergency (ER) | payer OTHER, SELFPAY ==
[2024-05-26 21:29] VITALS: BP 123/66; PULSE 99; RESP 20; TEMP 36.6; O2SAT 98; BMI 33.1
--- OUTSIDE RECORDS SUMMARY | 2024-05-27 09:29 | XMS_ITS | Data Portability ---
Author Organization [facility], [address] Address [address] [place] [address] Assessment No assessment recorded. Plan of Treatment Reminders Order Date Submit Date Provider Last Modified By Organization Details Last Modified Time Details Appointments None recorded. Lab None recorded. Referral None recorded. Procedures None recorded. Surgeries None recorded. Imaging XR, chest, 2 view 2022 023 [facility], [address] [place] [address], [address], 09:50:41 Medication Orders prednisone 20 mg tablet 2022 023 [facility], [address] [place], [address], 3 17:56:14 azithromyci n 250 mg tablet 2022 023 [facility], [address] [place], [address], 3 17:56:13 fluticasone 250 mcg-salmete rol 50 mcg/dose blistr powdr for inhalation 2022 023 [facility], [address] [place], [address], 3 17:56:13 albuterol sulfate HFA 90 mcg/actuati on aerosol inhaler 2022 023 [facility], [address] [place], [address], 3 17:56:14 albuterol sulfate 2.5 mg/3 mL (0.083 %) solution for nebulizatio n 2022 023 [facility] [address] [place], [address], 3 18:01:03 albuterol sulfate 2.5 mg/3 mL (0.083 %) solution for nebulizatio n 2022 023 [email or web address] Not available 3 17:54:22 ipratropium bromide 0.02 % solution for inhalation 2022 023 [email or web address] Not available 3 17:54:22 Zithromax Z-Paul 250 mg tablet 2022 023 [email or web address] [address] [place], [address], 3 17:12:42 [facility]one 20 mg tablet [facility] [address] [place], [address], 3 17:12:39 Mucinex 600 mg tablet, extended release 2022 023 [facility] [address] [place], [address], 3 17:12:39 albuterol sulfate 2.5 mg/3 mL (0.083 %) solution for nebulizatio n 2022 023 [email or web address] [facility], [address] [place], [address], 3 09:38:16 Flovent HFA 110 mcg/actuati on aerosol inhaler 2022 023 [facility] [address] [place], [address], 09:04:49 Patient TargetsNo targets recorded. Patient Instructions Encounter Date Encounter Id Patient Instructions Last Modified By Organization Details Last Modified Time 05/04/2022 [id number] cough: care instructions [email or web address] Not available 05/04/2022 08:57:49 Reason for Referral None Reported. Results Created Date Observation Date Name Description Value Unit Range Abnormal Flag Note LastModifiedBy Organization Detail LastModifiedTime 05/04/19 23 05/04/2022 XR, chest , 2 view No observ ation record ed. [email or web address] [facility] [address] [place], [address], 05/04/2022 10:06:37 Result Notes None recorded. Problems No Known Problems Procedures Surgical History Date Name Laterality Status Provider Name and Address Organization Details Recorded Time 10/25/19 Nebulizer Treatment completed Rey Sanders MD [address], [place], [address], [place] - [facility] 10/24/2022 18:17:43 04/07/19 12 Deep fundoplication completed JESUS DEPINTO PA - [facility] 05/04/2022 08:28:24 Imaging Results Imaging Date Name Status LastModified by Organiz ation Details LastModified Time 05/04/2022 XR, chest, 2 view completed [email or web address] [facility] [address] [place], [address], 05/04/2022 10:06:37 Procedure Notes None recorded. Medical Equipment None Reported. Allergies Allergen ID Allergen Name Allergen Category Reaction Reaction Severity Criticality Documentation Date Start Date Code Code System Note Provider Name and Address Organization Details Recorded Time 245930 tramadol medicatio n gi bleed Not available Not available 05/04/2022 96991 RxNorm JESUS DEPINTO null, [place] - [facility] 08:24:05 559142 doxycycli ne Not available other Not available Not available 05/04/2022 3640 RxNorm JESUS DEPINTO null, PA - [facility] 3 08:24:22 487852 Levaquin medicatio n myalgias (muscle pain) Not available Not available 05/04/2022 44761 2 RxNorm JESUS CHRISTEL Rankin [facility] 3 08:26:15 Medications Name Sig Start Date Stop Date Status Note LastModified by Organization Details LastModified Time fluticasone 250 mcg-salmete rol 50 mcg/dose blistr powdr for inhalation Inhale 1 puff twice a day by inhalatio n route for 30 days. 2022 active Not Available Not Available Not Avai lable prednisone 10 mg tablet TAKE 3 TABLETS BY MOUTH TWICE A DAY WITH FOOD FOR 5 DAYS FOR INFLAMMAT ION 05/04 completed Not Available Not Available Not Available albuterol sulfate 2.5 mg/3 mL (0.083 %) solution for nebulizatio n Inhale 3 mL 3 times a day by nebulizat ion route as needed for 10 days. 2022 active Not Available Not Available Not Avai lable azithromyci n 250 mg tablet TAKE 2 TABLETS (500 MG) BY ORAL ROUTE ONCE DAILY FOR 1 DAY THEN 1 TABLET (250 MG) BY ORAL ROUTE ONCE DAILY FOR 4 DAYS 2022 active Not Available Not Available Not Avai lable nicotine (polacrilex ) 2 mg gum CHEW 1 PIECE OF GUM EVERY HOUR NEEDED FOR NICOTINE CRAVINGS 05/04 completed Not Available Not Available Not Available prednisone 20 mg tablet Take 2 tablets every day by oral route for 5 days. 2022 active Not Available Not Available Not Avai lable cefuroxime axetil 500 mg tablet TAKE 1 TABLET (ORAL) 2 TIMES PER DAY FOR 10 DAYS FOR INFECTION 05/04 completed Not Available Not Available Not Available albuterol sulfate HFA 90 mcg/actuati on aerosol inhaler Inhale 2 puffs every 4 hours by inhalatio n route as needed. 2022 active Not Available Not Available Not Avai lable ipratropium bromide 0.02 % solution for inhalation Inhale 2.5 mL every day by inhalatio n route for 1 day. 2022 active Not Available Not Available Not Avai lable Mucinex 600 mg tablet, extended release Take 1 tablet every 12 hours by oral route. 10/24 completed Not Available Not Available Not Available Flovent HFA 110 mcg/actuati on aerosol inhaler TAKE 1 PUFF (INHALATI ON) 2 TIMES PER DAY FOR 30 DAYS active Not Available Not Available No t Available Vitals Date Recorded Body height Body mass index (BMI) Body weight Oxygen saturation Oxygen saturation in Arterial blood by Pulse oximetry Heart rate Pain severity - 0-10 verbal numeric rating [Score] - Reported Respiratory rate Body temperature Systolic blood pressure Diastolic blood pressure Provider Name and Address Organization Details Last Updated DateTime 3 160.02 cm 30.1 kg/m2 17209.7 g 95 % 95 % 65 /min 4 20 /min 98.2 [degF] 112 mm[Hg] 64 mm[Hg] Verenice Christianson [employer] [facility] [employer] [facility] 3 17:15:02 Date Recorded Body weight Body mass index (BMI) Body height Pain severity - 0-10 verbal numeric rating [Score] - Reported Oxygen saturation Oxygen saturation in Arterial blood by Pulse oximetry Heart rate Respiratory rate Body temperature Systolic blood pressure Diastolic blood pressure Provider Name and Address Organization Details Last Updated DateTime 3 98691.7 g 30.1 kg/m2 160.02 cm 0 97 % 97 % 102 /min 18 /min 98.6 [degF] 120 mm[Hg] 75 mm[Hg] JESUS ORR [employer] [facility] 3 08:30:35 Social History Question Answer Notes LastModified by Organizat ion Details LastModified Time Tobacco Smoking Status Former Smoker JESUS armando [place] - [facility] 05/04/2022 08:27:57 What Is Your Level Of Alcohol Consumption? None Information not available 05/04/2022 Do You Or Have You Ever Used E-cigarettes Or Vape? Never Used Electronic Cigarettes Information not available 05/04/2022 When Did You Quit Smoking? 1-5yearssincel [email or web address] Information not available 05/04/2022 Have You Had Direct Contact, Or Contact During Intimacy, With Monkeypox Rash, Scabs, Or Body Fluids From A Person With Monkeypox? No [email or web address] Information not available 10/24/2022 Do You Or Have You Ever Used Smokeless Tobacco? Current Snuff User Uses Pouches Information not available 05/04/2022 Do You Use Any Illicit Or Recreational Drugs? No Information not available 05/04/2022 Have You Recently Traveled Abroad? No Information not available 05/04/2022 Do You Or Have You Ever Used Any Other Forms Of Tobacco Or Nicotine? Yes Information not available 05/04/2022 Sex: Unknown Functional Status None recorded. Mental Status None recorded. Family History Relationship Description Onset Age of this Age Resolved Age Notes LastModified by Organization Details LastModified Time Father No current problems or disability Not available 05/04 08:26:56 Mother No current problems or disability Not available 05/04 08:26:56 Medical History No medical history recorded. Gynecological History Statement/Question Response Date of LMP 10/07/2022 Is there any chance of ? No LMP Approximate Obstetrics History GPAL:G 0 P 0 0 0 0 Immunizations Vaccine Type Date Status Note Provider Nam e and Address Organization Details Recorded Time COVID-19, mRNA, LNP-S, PF, 100 mcg/0.5mL dose or 50 mcg/0.25mL dose 1 completed JESUS DEPINTO null, PA - [facility] 05/04/2022 08:31:58 COVID-19, mRNA, LNP-S, PF, 100 mcg/0.5mL dose or 50 mcg/0.25mL dose 1 completed JESUS DEPINTO null, PA - [facility] 05/04/2022 08:31:58 COVID-19, mRNA, LNP-S, PF, 100 mcg/0.5mL dose or 50 mcg/0.25mL dose 1 completed JESUS DEPINTO null, PA - [facility] 05/04/2022 08:31:58 pneumococcal polysaccharide PPV23 0 completed JESUS DEPINTO null, PA - [facility] 05/04/2022 08:31:58 Tdap 9 completed JESUS DEPINTO null, PA - [facility] 05/04/2022 08:31:58 Influenza, split virus, quadrivalent, PF 0 completed JESUS DEPINTO null, PA - [facility] 05/04/2022 08:31:58 Influenza, split virus, quadrivalent, PF 1 completed JESUS DEPINTO null, PA - [facility] 05/04/2022 08:31:58 Past Encounters Encounter ID Performer Location Encounter Start Date Encounter Closed Date Diagnosis/Indication Diagnosis SNOMED-CT Code Diagnosis ICD10 Code Diagnosis Note [id number] [address] [place] [address] 01/05/2022 18:43:26 01/05/2022 19:48:35 [id number] [address] [place] [address] 08/19/2018 18:02:59 08/19/2018 18:40:37 [id number] [address] [place] [address] 07/07/2021 17:25:28 07/07/2021 18:43:28 [id number] [address] [place] [address] 07/18/2019 16:02:25 07/18/2019 17:00:44 [id number] [address] [place] [address] 11/10/2020 08:10:24 11/10/2020 09:12:38 [id number] [address] [place] [address] 10/04/2018 15:45:29 10/04/2018 16:50:59 [id number] Jeremy Shaikh DO [address] [place] [address] 05/04/2022 08:12:11 05/04/2022 09:30:39 Cough 26306251 R05.9 Given Hx and Sx will Rx Abx and albuterol MDIprednis one burstTrial of mucinex prn congestion Humidified airrest, fluidstyle nol/ibu prn please see your PCP within 1 week Patient advised to follow up as needed for worsening symptoms or no improvemen t. Discussed concerning red flags with patient and reasons to follow up in the Emergency Department urgently. [id number] Rey Sanders MD [address] [place] [address] 10/24/2022 16:50:57 10/24/2022 18:22:00 Expiratory wheezing 9480915 R06.2 Bronchitis 15016626 J40 POssible COPD with exacerbati on . Suggest albuterol every 4 hours as needed Health Concerns Section Related Observation LastModified by Organization Detai ls LastModified Time None Recorded Concern Status LastModified by Organization Details LastModified Time None Recorded Advance Directives Directive None Recorded Payers Encounter Date Sequence Insurance Name Policy Number Policy Brady Covered Member ID Brady Member ID Guarantor Name 05/04/2022 1 [facility] [id number] Debora Glavan 10/24/[address] [facility] - [employer] [facility] (MEDICAID HMO) LALO Galvan [id number] Debora Galvan Notes Date Note Type Note Provider Name and Address Organization Details Recorded Time 05/04/2022 text/html CoughReported bypatient.Notes:37 yo femaledx and in hospital with pneumonia 3 weeks agoRecently started using vape againc/o tightness in chest+ back mm spasm from coughDid nebulizer tx 1 hr ago (ran out of supplies).has h/o bronchitis former smokernow vapes asthma - albuterol prn cough/wheeze No feverNo chillsNo difficulty breathing or respiratory distressNo CPNo congestionNo ear painNo sore throatNo Abdominal painNo nauseaNo vomitingNp diarrheaNo myalgiaNo fatigueNo rashNo HANo dizzinessNo recent travelNo known sick contacts Jeremy Shaikh, DO [address] [place], [address], [place] - [facility] 05/04/2022 09:27:24 10/24/2022 text/html Shortness of BreathReported bypatient.Timing3 days Additional symptomscoughNotes:S moker, O2 sats can go to 90, needs albuterol inhlaer but is out of it. Rey Sanders MD [address] [place], [address], [place] - [facility] 10/24/2022 19:38:02 OBGyn Episode No OBEpisode recorded.
== END 2024-05-27 11:11 | disposition left against medical advice (07) ==
PROVIDERS: Emergency Provider Emergency Medicine
DX: R10.2 Pelvic and perineal pain (principal)
CPT/HCPCS: 99281